=== PATIENT | female | born 1995 | race Caucasian/White ===

== ENCOUNTER 2023-04-27 09:44 | Outpatient (OUT) | payer OTHER, MEDICAID, SELFPAY ==
[2023-04-27 11:23] LABS: Basophils Absolute Auto 0.1 10^3/uL (0.0-0.1); Basophils Percent Auto 0.5 % (0.2-2.0); Eosinophils Absolute Auto 0.1 10^3/uL (0.0-0.7); Eosinophils Percent Auto 0.9 % (0.9-7.0); Hematocrit 29.1 % (36.0-48.0); Hemoglobin 9.6 g/dL (12.0-16.0); Immature Granulocytes Abs Auto 0.45 10^3/uL (0.00-0.03); Immature Granulocytes Pct Auto 3.9 % (0.0-0.5); Lymphocytes Absolute Auto 1.5 10^3/uL (1.2-3.8); Lymphocytes Percent Auto 13.2 % (20.5-60.0); Mean Corpuscular Hemoglobin 28.1 pg (26.7-34.0); Mean Corpuscular Volume 85.1 fL (81.0-99.0); Mean Platelet Volume 10.3 fL (9.5-13.5); Monocytes Absolute Auto 0.7 10^3/uL (0.3-0.8); Monocytes Percent Auto 6.1 % (1.7-12.0); Neutrophils Absolute Auto 8.6 10^3/uL (1.4-6.5); Neutrophils Percent Auto 75.4 % (43.0-75.0); Platelet Count 239 10^3/uL (150-450); Red Blood Count 3.42 10^6/uL (4.20-5.40); Red Cell Distribution Width 13.3 % (11.0-15.0); White Blood Count 11.4 10^3/uL (4.0-11.0)
[2023-04-27 11:28] LABS: Glucose 1 Hour 142 mg/dL
== END 2023-04-27 09:45 ==
LOC: LAB 09:45
PROVIDERS: PCP Obstetrics & Gynecology; Visit Provider Obstetrics & Gynecology
DX: Z34.92 Encounter for supervision of normal pregnancy, unspecified, second trimester (principal)
CPT/HCPCS: 36415; 82950; 85025

== ENCOUNTER 2023-05-07 19:05 | Outpatient (OUT) | payer OTHER, MEDICAID, SELFPAY ==
--- NOTE | 2023-05-07 19:08 | US_ITS ---
[address] [address] Patient Name: BEAN HOPPER MRN: [id number] date: 1995 Sex: F Assigned Patient Location: Current Patient Location: [place] Accession/Order Number: [id number] Exam Date: 05/07/2023 19:07 Report Date: 05/08/2023 05:06 At the request of: YOSSI BECKER Procedure: US OB growth EXAMINATION: US OB growth HISTORY: FIBROMYALGIA M79.7 COMPARISON: No relevant comparison available. FINDINGS: position: Cephalic presentation, longitudinal lie Amniotic fluid: 8.3 cm, lower limits of normal. The 5th percentile 8.29 cm Largest fluid pocket: 3.7 cm Heart rate: 141 bpm BPD: 7.68 cm, 30 weeks 6 days, 76% Head circumference: 20.44 cm, 31 weeks 2 days, 65% Abdominal circumference: 24.8 cm, 29 weeks 0 days, 29% Femur length: 5.6 cm, 29 weeks 4 days, 35% Estimated weight: 3 lbs. 2 oz., 36% Clinical age: 29 weeks 4 days Clinical JOSELYN: 07/19/2023 Ultrasound age: 30 weeks 1 day Ultrasound JOSELYN: 07/15/2023 IMPRESSION: Amniotic fluid volume just above the 5th 8.29 cm Otherwise normal interval growth Electronically authenticated by: ZHAO BLUNT Date: 05/08/2023 05:06
== END 2023-05-07 19:06 ==
PROVIDERS: PCP Obstetrics & Gynecology; Visit Provider Obstetrics & Gynecology
DX: O99.892 Other specified diseases and conditions complicating childbirth (principal); M79.7 Fibromyalgia
CPT/HCPCS: 76816

== ENCOUNTER 2023-05-09 08:22 | Outpatient (OUT) | payer OTHER, MEDICAID, SELFPAY ==
[2023-05-09 10:19] LABS: Glucose 1 Hour 140 mg/dL
== END 2023-05-09 08:23 ==
LOC: LAB 08:22
PROVIDERS: PCP Obstetrics & Gynecology; Visit Provider Obstetrics & Gynecology
DX: R73.09 Other abnormal glucose (principal)
CPT/HCPCS: 36415; 82950

== ENCOUNTER 2023-05-14 08:54 | Outpatient (OUT) | payer OTHER, MEDICAID, SELFPAY ==
[2023-05-14 09:16] LABS: Glucose Fasting 97 mg/dL (74-106)
[2023-05-14 12:18] LABS: Glucose 2 Hour 110 mg/dL
[2023-05-14 12:19] LABS: Glucose 1 Hour 147 mg/dL
[2023-05-14 14:04] LABS: Glucose 3 Hour 104 mg/dL
== END 2023-05-14 08:55 | disposition home or self-care (01) ==
PROVIDERS: PCP Obstetrics & Gynecology; Visit Provider Obstetrics & Gynecology
DX: E74.39 Other disorders of intestinal carbohydrate absorption (principal)
CPT/HCPCS: 36415; 82951; 82952

== ENCOUNTER 2023-05-20 12:21 | Outpatient (OUT) | payer OTHER, MEDICAID, SELFPAY ==
[2023-05-20] VITALS (7 sets, daily range): BP systolic 98–143; BP diastolic 62–73; PULSE 92–96; RESP 16–18; TEMP 36.5–37.4
--- NOTE | 2023-05-20 13:38 | US_ITS ---
[address] [address] Patient Name: BEAN HOPPER MRN: [id number] date: 1995 Sex: F Assigned Patient Location: [facility] Current Patient Location: [facility] Accession/Order Number: [id number] Exam Date: 05/20/2023 13:50 Report Date: 05/20/2023 15:13 At the request of: YOSSI BECKER Procedure: US OB placenta EXAMINATION: US OB placenta, US OB cervical length HISTORY: spotting COMPARISON: Ultrasound OB growth 05/07/2023 FINDINGS: PLACENTA: Located anteriorly. During the placenta and the uterine wall is a 3.0 x 2.1 x 1.2 cm isoechoic oval structure with internal vascularity, nonspecific but suggestive of a submucosal leiomyoma, possible venous maza. CERVIX LENGTH: 4.0 cm; closed. HEART RATE: 148 bpm PRESENTATION: Cephalic OTHER: None. IMPRESSION: 1. Single live intrauterine . 2. New nonspecific 3.0 cm isoechoic area between the placenta and endometrium which appears well encapsulated and demonstrates a small amount of internal blood flow; nonspecific. Consideration is given to venous maza and subchorionic hematoma. Follow-up is recommended.. Electronically authenticated by: NELLA BOYD Date: 05/20/2023 15:13
--- NOTE | 2023-05-20 13:44 | PC.NURSE ---
Dr. Aviles called with update re: pt. Orders received and confirmed.
[2023-05-20 14:32] LABS: Bilirubin Urine NEGATIVE (NEGATIVE); Blood Urine MODERATE (NEGATIVE); Clarity Urine CLEAR (CLEAR); Color Urine LT. YELLOW (YELLOW); Glucose Urine UA NEGATIVE (NEGATIVE); Ketones Urine NEGATIVE (NEGATIVE); Leukocyte Esterase Urine MODERATE (NEGATIVE); Nitrite Urine NEGATIVE (NEGATIVE); Protein Urine NEGATIVE (NEG/TRACE); Specific Gravity Urine 1.015 (1.005-1.025)
[2023-05-20 14:33] LABS: Urine Microscopic Indicated YES
[2023-05-20 14:45] LABS: Amorphous Sediment Urine FEW; Bacteria Urine TRACE #/HPF (NONE SEEN); Cast Seen? SEEN #/LPF (NONE SEEN); Crystals Seen? Seen #/HPF (None Seen); Hyaline Casts Urine RARE; Mucus Urine TRACE (NONE SEEN); Squamous Epithelial Cell Urine MODERATE #/LPF (NONE/RARE)
[2023-05-20 14:46] LABS: Urine Culture Indicated YES
--- NOTE | 2023-05-20 15:36 | PC.NURSE ---
Dr. Aviles called at this time to be told of Radiologist report of US of placenta. No answer, will try again in 10 minutes.
--- NOTE | 2023-05-20 18:05 | PC.NURSE ---
Pt. denies any needs at this time. States last time she went to the [facility] she didn't have any bleeding. Denies any pain. Ate grilled cheese for dinner. Continuous TOCO remains. Fresh ice water given.
--- NOTE | 2023-05-20 19:39 | W.PC.ACHO ---
Registration Status: REG OUT Primary Language: Preferred Language: Diet Category Date Time Status Regular Consistency Diet Diet 05/21/23 Breakfast Active
[2023-05-21 04:32] VITALS: BP 111/58; PULSE 75; RESP 16; TEMP 36.9
[2023-05-21 04:36] VITALS: BP 111/58; PULSE 75
--- NOTE | 2023-05-21 07:42 | W.PC.ACHO ---
Registration Status: REG OUT Primary Language: Preferred Language: Diet Category Date Time Status Regular Consistency Diet Diet 05/21/23 Breakfast Active Neurology Franklin coma scale total score 15 Daisy coma scale total score 15 Franklin coma scale total score 15 Respiratory Lung sounds [Bilateral clear Throughout] Lung sounds [Bilateral clear Throughout] Lung sounds [Bilateral clear Throughout] Oxygen Delivery Method Room Air Oxygen Delivery Method Room Air Oxygen Delivery Method Room Air
[2023-05-21 08:26] VITALS: TEMP 35.9
[2023-05-21 08:27] VITALS: BP 112/57; PULSE 76
--- NOTE | 2023-05-21 09:30 | US_ITS ---
[address] [address] Patient Name: BEAN HOPPER MRN: [id number] date: 1995 Sex: F Assigned Patient Location: [facility] Current Patient Location: [facility] Accession/Order Number: [id number] Exam Date: 05/21/2023 09:30 Report Date: 05/21/2023 11:11 At the request of: YOSSI BECKER Procedure: US OB placenta EXAMINATION: US OB placenta, US OB BPP w non-stress HISTORY: spotting COMPARISON: Ultrasound placenta 05/20/2023 FINDINGS: PLACENTA: Anterior. Again seen is a 2.9 x 2.5 x 1.3 cm oval well encapsulated structure between the placenta and uterine wall with mild internal blood flow. BREATHING MOVEMENTS: 2.0 GROSS BODY MOVEMENTS: 2.0 TONE: 2.0 QUALITATIVE AMNIOTIC FLUID VOLUME: 2.0 PRESENTATION: CEPHALIC HEART RATE: 143.6 bpm bpm. AMNIOTIC FLUID VOLUME: 12.6 cm GESTATIONAL AGE: 31 weeks 4 days CONCLUSION: 1. Total biophysical profile score 8.0. 2. Persistent 2.9 cm oval mass versus encapsulated fluid collection between placenta and uterine wall, nonspecific, consideration is given to a leiomyoma, placental tumor (chorioangioma, teratoma), and small hematoma. Hematoma is felt less likely given the lack of any change. Electronically authenticated by: NELLA BOYD Date: 05/21/2023 11:11
--- NOTE | 2023-05-21 09:30 | US_ITS ---
[address] [address] Patient Name: BEAN HOPPER MRN: [id number] date: 1995 Sex: F Assigned Patient Location: [facility] Current Patient Location: [facility] Accession/Order Number: [id number] Exam Date: 05/21/2023 09:30 Report Date: 05/21/2023 11:11 At the request of: YOSSI BECKER Procedure: US OB BPP w non-stress EXAMINATION: US OB placenta, US OB BPP w non-stress HISTORY: spotting COMPARISON: Ultrasound placenta 05/20/2023 FINDINGS: PLACENTA: Anterior. Again seen is a 2.9 x 2.5 x 1.3 cm oval well encapsulated structure between the placenta and uterine wall with mild internal blood flow. BREATHING MOVEMENTS: 2.0 GROSS BODY MOVEMENTS: 2.0 TONE: 2.0 QUALITATIVE AMNIOTIC FLUID VOLUME: 2.0 PRESENTATION: CEPHALIC HEART RATE: 143.6 bpm bpm. AMNIOTIC FLUID VOLUME: 12.6 cm GESTATIONAL AGE: 31 weeks 4 days CONCLUSION: 1. Total biophysical profile score 8.0. 2. Persistent 2.9 cm oval mass versus encapsulated fluid collection between placenta and uterine wall, nonspecific, consideration is given to a leiomyoma, placental tumor (chorioangioma, teratoma), and small hematoma. Hematoma is felt less likely given the lack of any change. Electronically authenticated by: NELLA BOYD Date: 05/21/2023 11:11
--- NOTE | 2023-05-21 10:17 | PC.NURSE ---
1010- Dr. Aviles called and updated on US. BPP 06/25, OFELIA 12.6 and spot behind placenta (venous maza vs. subchorionic hematoma) has not changed.
== END 2023-05-21 10:45 | disposition home or self-care (01) ==
LOC: FBCO 12:25 → FBC 12:27
PROVIDERS: PCP Obstetrics & Gynecology; Visit Provider Obstetrics & Gynecology
DX: O46.93 Antepartum hemorrhage, unspecified, third trimester (principal); Z3A.31 31 weeks gestation of pregnancy
CPT/HCPCS: 59025; 76815; 76817; 76818; 81003; 81015; 87086

== ENCOUNTER 2023-05-24 12:54 | Outpatient (OUT) | payer OTHER, MEDICAID, SELFPAY ==
--- NOTE | 2023-05-24 13:05 | US_ITS ---
[address] [address] Patient Name: BEAN HOPPER MRN: [id number] date: 1995 Sex: F Assigned Patient Location: [facility] Current Patient Location: Accession/Order Number: [id number] Exam Date: 05/24/2023 13:06 Report Date: 05/24/2023 16:34 At the request of: YOSSI BECKER Procedure: US OB BPP w non-stress EXAMINATION: US OB BPP w non-stress HISTORY: PLACENTAL ABNORMALITY COMPARISON: No relevant comparison available. TECHNIQUE: Ultrasound biophysical profile was performed in the radiology department. non-reactive stress testing was performed by nursing staff in the birthing center. FINDINGS: BREATHING MOVEMENTS: 2.0 GROSS BODY MOVEMENTS: 2.0 TONE: 2.0 QUALITATIVE AMNIOTIC FLUID VOLUME: 2.0 PRESENTATION: CEPHALIC HEART RATE: 148.4 bpm H.B./min AMNIOTIC FLUID VOLUME: 13.6 cm cm GESTATIONAL AGE: 32 weeks 0 days Previously identified area of oval abnormality between the placenta and myometrium remains stable measuring 2.9 x 1.3 x 3.1 cm CONCLUSION: Total biophysical profile score: 8.0 Electronically authenticated by: ZHAO BLUNT Date: 05/24/2023 16:34
== END 2023-05-24 13:55 | disposition home or self-care (01) ==
LOC: US 12:55 → FBC 12:57
PROVIDERS: PCP Obstetrics & Gynecology; Visit Provider Obstetrics & Gynecology
DX: O26.893 Other specified pregnancy related conditions, third trimester (principal); Z3A.32 32 weeks gestation of pregnancy
CPT/HCPCS: 76818

== ENCOUNTER 2023-05-27 20:23 | Outpatient (REF) | payer OTHER, MEDICAID, SELFPAY | END 2023-05-27 20:24 | disposition home or self-care (01) | LOC: LAB 20:23 | PROVIDERS: PCP Obstetrics & Gynecology; Visit Provider Obstetrics & Gynecology | DX: O36.8930 Maternal care for other specified fetal problems, third trimester, not applicable or unspecified (principal); O99.891 Other specified diseases and conditions complicating pregnancy; R31.9 Hematuria, unspecified; O41.8X30 Other specified disorders of amniotic fluid and membranes, third trimester, not applicable or unspecified; Z3A.00 Weeks of gestation of pregnancy not specified | CPT/HCPCS: 87086; 87150; 87186 ==

== ENCOUNTER 2023-05-28 08:55 | Outpatient (RCR) | payer OTHER, MEDICAID, SELFPAY ==
[2023-05-28 09:05] VITALS: BP 122/59; PULSE 82
== END 2023-05-28 09:30 | disposition home or self-care (01) ==
LOC: FBCO 08:55
PROVIDERS: PCP Obstetrics & Gynecology; Visit Provider Obstetrics & Gynecology
DX: O46.90 Antepartum hemorrhage, unspecified, unspecified trimester (principal); Z3A.00 Weeks of gestation of pregnancy not specified
CPT/HCPCS: 59025

== ENCOUNTER 2023-05-31 13:00 | Outpatient (OUT) | payer OTHER, MEDICAID, SELFPAY ==
--- NOTE | 2023-05-31 13:00 | US_ITS ---
[address] [address] Patient Name: BEAN HOPPER MRN: [id number] date: 1995 Sex: F Assigned Patient Location: US Current Patient Location: US Accession/Order Number: [id number] Exam Date: 05/31/2023 13:01 Report Date: 06/01/2023 00:00 At the request of: YOSSI BECKER Procedure: US OB BPP w non-stress EXAMINATION: US OB BPP w non-stress HISTORY: PLACENTA ABNORMALITY COMPARISON: Ultrasound biophysical 05/24/2023 TECHNIQUE: Ultrasound biophysical profile was performed in the radiology department. BREATHING MOVEMENTS: 2.0 GROSS BODY MOVEMENTS: 2.0 TONE: 2.0 QUALITATIVE AMNIOTIC FLUID VOLUME: 2.0 PRESENTATION: CEPHALIC HEART RATE: 150.0 bpm bpm. AMNIOTIC FLUID VOLUME: 10.1 cm GESTATIONAL AGE: 33 weeks 0 days CONCLUSION: Total biophysical profile score 8.0. Electronically authenticated by: NELLA BOYD Date: 06/01/2023 00:00
[2023-05-31 13:23] VITALS: BP 122/56; PULSE 91
== END 2023-05-31 14:01 | disposition home or self-care (01) ==
LOC: US 13:00 → FBC 13:06
PROVIDERS: PCP Obstetrics & Gynecology; Visit Provider Obstetrics & Gynecology
DX: O99.013 Anemia complicating pregnancy, third trimester (principal); O43.93 Unspecified placental disorder, third trimester; Z3A.00 Weeks of gestation of pregnancy not specified
CPT/HCPCS: 36415; 76818; 85007; 85025

== ENCOUNTER 2023-05-31 14:01 | Outpatient (OUT) | payer OTHER, MEDICAID, SELFPAY ==
[2023-05-31 14:23] LABS: Hematocrit 30.7 % (36.0-48.0); Hemoglobin 10.3 g/dL (12.0-16.0); Mean Corpuscular HGB Conc 33.6 g/dL (29.9-35.2); Mean Corpuscular Hemoglobin 28.1 pg (26.7-34.0); Mean Corpuscular Volume 83.7 fL (81.0-99.0); Mean Platelet Volume 9.7 fL (9.5-13.5); Platelet Count 233 10^3/uL (150-450); Red Blood Count 3.67 10^6/uL (4.20-5.40); Red Cell Distribution Width 13.3 % (11.0-15.0); White Blood Count 12.8 10^3/uL (4.0-11.0)
[2023-05-31 15:17] LABS: Band Neutrophils Absolute 0.1 10^3/uL (0.0-0.3); Segmented Neut Absolute Manual 10.36 10^3/uL (1.4-6.5)
[2023-05-31 15:18] LABS: Eosinophils Absolute Manual 0.12 10^3/uL (0.00-0.70); Lymphocytes Absolute Manual 1.66 10^3/uL (1.20-3.80); Monocytes Absolute Manual 0.51 10^3/uL (0.30-0.80)
== END 2023-05-31 14:02 | disposition home or self-care (01) ==
LOC: LAB 14:03
PROVIDERS: PCP Obstetrics & Gynecology; Visit Provider Obstetrics & Gynecology
DX: O99.013 Anemia complicating pregnancy, third trimester (principal); Z3A.00 Weeks of gestation of pregnancy not specified
CPT/HCPCS: 36415; 85007; 85025

== ENCOUNTER 2023-06-04 08:59 | Outpatient (OUT) | payer OTHER, MEDICAID, SELFPAY ==
[2023-06-04 09:08] VITALS: BP 131/75; PULSE 97
== END 2023-06-04 09:38 | disposition home or self-care (01) ==
LOC: FBCO 08:59 → FBC 09:01
PROVIDERS: Visit Provider Midwife
DX: O26.899 Other specified pregnancy related conditions, unspecified trimester (principal)
CPT/HCPCS: 59025

== ENCOUNTER 2023-06-07 13:36 | Outpatient (OUT) | payer OTHER, MEDICAID, SELFPAY ==
--- NOTE | 2023-06-07 13:02 | US_ITS ---
[address] [address] Patient Name: BEAN HOPPER MRN: [id number] date: 1995 Sex: F Assigned Patient Location: US Current Patient Location: Accession/Order Number: [id number] Exam Date: 06/07/2023 13:03 Report Date: 06/07/2023 18:07 At the request of: YOSSI BECKER Procedure: US OB BPP w non-stress EXAMINATION: US OB BPP w non-stress HISTORY: ABNORMAL PLACENTA COMPARISON: No relevant comparison available. TECHNIQUE: Ultrasound biophysical profile was performed in the radiology department. non-reactive stress testing was performed by nursing staff in the birthing center. FINDINGS: BREATHING MOVEMENTS: 2.0 GROSS BODY MOVEMENTS: 2.0 TONE: 2.0 QUALITATIVE AMNIOTIC FLUID VOLUME: 2.0 PRESENTATION: CEPHALIC HEART RATE: 160.7 bpm H.B./min AMNIOTIC FLUID VOLUME: 9.1 cm cm GESTATIONAL AGE: 34 weeks 0 days CONCLUSION: Total biophysical profile score: 8.0 Electronically authenticated by: ZHAO BLUNT Date: 06/07/2023 18:07
== END 2023-06-07 14:15 | disposition home or self-care (01) ==
LOC: US 13:36 → FBC 13:39
PROVIDERS: Visit Provider Obstetrics & Gynecology
DX: O43.93 Unspecified placental disorder, third trimester (principal); Z3A.34 34 weeks gestation of pregnancy
CPT/HCPCS: 76818

== ENCOUNTER 2023-06-11 09:37 | Outpatient (OUT) | payer OTHER, MEDICAID, SELFPAY ==
[2023-06-11 09:42] VITALS: BP 113/65; PULSE 101
== END 2023-06-11 10:07 | disposition home or self-care (01) ==
LOC: FBCO 09:38 → FBC 09:39
PROVIDERS: Visit Provider Obstetrics & Gynecology
DX: O26.90 Pregnancy related conditions, unspecified, unspecified trimester (principal); Z3A.00 Weeks of gestation of pregnancy not specified
CPT/HCPCS: 59025

== ENCOUNTER 2023-06-14 12:55 | Outpatient (OUT) | payer OTHER, MEDICAID, SELFPAY ==
[2023-06-14 13:03] VITALS: BP 128/74; PULSE 92
--- NOTE | 2023-06-14 13:11 | US_ITS ---
[address] [address] Patient Name: BEAN HOPEPR MRN: [id number] date: 1995 Sex: F Assigned Patient Location: [facility] Current Patient Location: Accession/Order Number: [id number] Exam Date: 06/14/2023 13:15 Report Date: 06/14/2023 15:47 At the request of: ANEL SHERWOOD Procedure: US OB BPP w non-stress EXAMINATION: US OB BPP w non-stress HISTORY: PLACENTAL ABNORMALITY COMPARISON: Ultrasound biophysical 06/07/2023 TECHNIQUE: Ultrasound biophysical profile was performed in the radiology department. BREATHING MOVEMENTS: 2.0 GROSS BODY MOVEMENTS: 2.0 TONE: 2.0 QUALITATIVE AMNIOTIC FLUID VOLUME: 2.0 PRESENTATION: CEPHALIC HEART RATE: 149.2 bpm bpm. AMNIOTIC FLUID VOLUME: 9.3 cm GESTATIONAL AGE: 35 weeks 0 days CONCLUSION: 1. Total biophysical profile score 8.0. 2. Nonspecific 2.2 cm isoechoic/slightly hypoechoic area at placental-endometrial margin of questionable clinical significance. Consider follow-up. 3. Small venous maza incidentally noted within the placenta. Electronically authenticated by: NELLA BOYD Date: 06/14/2023 15:47
== END 2023-06-14 14:00 | disposition home or self-care (01) ==
LOC: US 12:56 → FBC 12:57
PROVIDERS: Visit Provider Obstetrics & Gynecology
DX: O43.90 Unspecified placental disorder, unspecified trimester (principal); Z3A.00 Weeks of gestation of pregnancy not specified
CPT/HCPCS: 59025; 76818

== ENCOUNTER 2023-06-18 09:00 | Outpatient (OUT) | payer OTHER, MEDICAID, SELFPAY ==
[2023-06-18 09:16] VITALS: BP 124/69; PULSE 99
== END 2023-06-18 10:13 ==
LOC: FBCO 09:07 → FBC 09:09
PROVIDERS: Visit Provider Midwife
DX: O43.90 Unspecified placental disorder, unspecified trimester (principal)
CPT/HCPCS: 59025

== ENCOUNTER 2023-06-21 13:02 | Outpatient (OUT) | payer OTHER, MEDICAID, SELFPAY ==
--- NOTE | 2023-06-21 13:05 | US_ITS ---
[address] [address] Patient Name: BEAN HOPPER MRN: [id number] date: 1995 Sex: F Assigned Patient Location: [facility] Current Patient Location: [facility] Accession/Order Number: [id number] Exam Date: 06/21/2023 13:10 Report Date: 06/21/2023 14:11 At the request of: YOSSI BECKER Procedure: US OB BPP w non-stress EXAMINATION: US OB BPP w non-stress HISTORY: Placental abnormalities COMPARISON: No relevant comparison available. TECHNIQUE: Ultrasound biophysical profile was performed in the radiology department. FINDINGS: BREATHING MOVEMENTS: 2.0 GROSS BODY MOVEMENTS: 2.0 TONE: 2.0 QUALITATIVE AMNIOTIC FLUID VOLUME: 2.0 PRESENTATION: CEPHALIC HEART RATE: 147.5 bpm H.B./min AMNIOTIC FLUID VOLUME: 13.2 cm cm GESTATIONAL AGE: 36 weeks 0 days Again demonstrated and myometrial placental junction is an area of soft tissue echogenicity slightly hypoechoic to the placenta measuring 2.4 x 2.3 x 1.4 cm. This lesion demonstrates peripheral color flow CONCLUSION: Total biophysical profile score: 8.0 Slight interval increase in size of a nonspecific 2.4 cm hypoechogenic peripherally vascular lesion at the myometrial placental junction. Nonspecific. Consider a placenta accreta spectrum disorder Electronically authenticated by: ZHAO BLUNT Date: 06/21/2023 14:11
[2023-06-21 13:35] VITALS: BP 120/62; PULSE 92
== END 2023-06-21 14:00 | disposition home or self-care (01) ==
LOC: US 13:02 → FBC 13:03
PROVIDERS: Visit Provider Obstetrics & Gynecology
DX: O43.93 Unspecified placental disorder, third trimester (principal); Z3A.36 36 weeks gestation of pregnancy
CPT/HCPCS: 76818

== ENCOUNTER 2023-06-25 09:00 | Outpatient (OUT) | payer OTHER, MEDICAID, SELFPAY ==
[2023-06-25 09:16] VITALS: TEMP 36.3
[2023-06-25 09:17] VITALS: BP 114/61; PULSE 80
== END 2023-06-25 09:40 | disposition home or self-care (01) ==
LOC: FBCO 09:10 → FBC 09:11
PROVIDERS: Visit Provider Obstetrics & Gynecology
DX: O43.90 Unspecified placental disorder, unspecified trimester (principal); Z3A.00 Weeks of gestation of pregnancy not specified
CPT/HCPCS: 59025

== ENCOUNTER 2023-06-27 20:04 | Outpatient (REF) | payer OTHER, MEDICAID, SELFPAY | END 2023-06-27 20:05 | disposition home or self-care (01) | LOC: LAB 20:04 | PROVIDERS: Visit Provider Physician Assistant | DX: Z34.93 Encounter for supervision of normal pregnancy, unspecified, third trimester (principal) | CPT/HCPCS: 87081 ==

== ENCOUNTER 2023-06-28 13:00 | Outpatient (OUT) | payer OTHER, MEDICAID, SELFPAY ==
[2023-06-28 13:13] VITALS: BP 132/71; PULSE 82; TEMP 35.9
--- NOTE | 2023-06-28 13:16 | US_ITS ---
[address] [address] Patient Name: BEAN HOPPER MRN: [id number] date: 1995 Sex: F Assigned Patient Location: US Current Patient Location: US Accession/Order Number: [id number] Exam Date: 06/28/2023 13:25 Report Date: 06/28/2023 16:06 At the request of: ANEL SHERWOOD Procedure: US OB BPP w non-stress EXAMINATION: US OB BPP w non-stress HISTORY: PLACENTA ABNORMALITY COMPARISON: Ultrasound OB biophysical 06/21/2023 TECHNIQUE: Ultrasound biophysical profile was performed in the radiology department. BREATHING MOVEMENTS: 2.0 GROSS BODY MOVEMENTS: 2.0 TONE: 2.0 QUALITATIVE AMNIOTIC FLUID VOLUME: 2.0 PRESENTATION: CEPHALIC HEART RATE: 138.5 bpm bpm. AMNIOTIC FLUID VOLUME: 11.9 cm GESTATIONAL AGE: 37 weeks 0 days CONCLUSION: Total biophysical profile score 8.0. Electronically authenticated by: NELLA BOYD Date: 06/28/2023 16:06
== END 2023-06-28 13:55 | disposition home or self-care (01) ==
LOC: US 07-03 07:41 → FBC 07-03 07:41
PROVIDERS: Visit Provider Obstetrics & Gynecology
DX: O43.93 Unspecified placental disorder, third trimester (principal); Z3A.37 37 weeks gestation of pregnancy
CPT/HCPCS: 76818

== ENCOUNTER 2023-07-02 09:02 | Outpatient (OUT) | payer OTHER, MEDICAID, SELFPAY ==
[2023-07-02 09:14] VITALS: BP 135/70; PULSE 90
== END 2023-07-02 09:40 | disposition home or self-care (01) ==
LOC: FBCO 09:04 → FBC 09:09
PROVIDERS: Visit Provider Midwife
DX: O43.899 Other placental disorders, unspecified trimester (principal); Z3A.00 Weeks of gestation of pregnancy not specified
CPT/HCPCS: 59025

== ENCOUNTER 2023-07-05 13:02 | Outpatient (OUT) | payer OTHER, MEDICAID, SELFPAY ==
--- NOTE | 2023-07-05 13:05 | US_ITS ---
[address] [address] Patient Name: BEAN HOPPER MRN: [id number] date: 1995 Sex: F Assigned Patient Location: [facility] Current Patient Location: Accession/Order Number: [id number] Exam Date: 07/05/2023 13:15 Report Date: 07/08/2023 15:34 At the request of: YOSSI BECKER Procedure: US OB BPP w non-stress EXAMINATION: US OB BPP w non-stress HISTORY: PLACENTAL ABNORMALITIES COMPARISON: Ultrasound OB biophysical profile 06/28/2023 TECHNIQUE: Ultrasound biophysical profile was performed in the radiology department. BREATHING MOVEMENTS: 2.0 GROSS BODY MOVEMENTS: 2.0 TONE: 2.0 QUALITATIVE AMNIOTIC FLUID VOLUME: 2.0 PRESENTATION: CEPHALIC HEART RATE: 145.2 bpm bpm. AMNIOTIC FLUID VOLUME: 9.5 cm GESTATIONAL AGE: 38 weeks 0 days CONCLUSION: Total biophysical profile score 8.0. Electronically authenticated by: NELLA BOYD Date: 07/08/2023 15:34
[2023-07-05 13:47] VITALS: BP 121/71; PULSE 86
== END 2023-07-05 14:18 ==
LOC: US 13:02 → FBC 13:03
PROVIDERS: Visit Provider Obstetrics & Gynecology
DX: O43.93 Unspecified placental disorder, third trimester (principal); Z3A.38 38 weeks gestation of pregnancy
CPT/HCPCS: 59025; 76818

== ENCOUNTER 2023-07-09 09:11 | Outpatient (RCR) | payer OTHER, MEDICAID, SELFPAY ==
[2023-07-09 09:21] VITALS: BP 117/69; PULSE 94
== END 2023-07-09 09:40 | disposition home or self-care (01) ==
LOC: FBCO 09:11
PROVIDERS: Visit Provider Obstetrics & Gynecology
DX: O43.90 Unspecified placental disorder, unspecified trimester (principal); Z3A.00 Weeks of gestation of pregnancy not specified
CPT/HCPCS: 59025

== ENCOUNTER 2023-07-12 13:00 | Outpatient (OUT) | payer OTHER, MEDICAID, SELFPAY ==
--- NOTE | 2023-07-12 13:09 | US_ITS ---
[address] [address] Patient Name: BEAN HOPPER MRN: [id number] date: 1995 Sex: F Assigned Patient Location: [facility] Current Patient Location: Accession/Order Number: [id number] Exam Date: 07/12/2023 13:10 Report Date: 07/13/2023 17:37 At the request of: YOSSI BECKER Procedure: US OB BPP w non-stress EXAMINATION: US OB BPP w non-stress HISTORY: Placental abnormalities COMPARISON: No relevant comparison available. TECHNIQUE: Ultrasound biophysical profile was performed in the radiology department. FINDINGS: BREATHING MOVEMENTS: 2.0 GROSS BODY MOVEMENTS: 2.0 TONE: 2.0 QUALITATIVE AMNIOTIC FLUID VOLUME: 2.0 PRESENTATION: CEPHALIC HEART RATE: 158.8 bpm H.B./min AMNIOTIC FLUID VOLUME: 10.7 cm cm GESTATIONAL AGE: 39 weeks 0 days CONCLUSION: Total biophysical profile score: 8.0 Electronically authenticated by: ZHAO BLUNT Date: 07/13/2023 17:37
[2023-07-12 13:32] VITALS: BP 108/64; PULSE 85
== END 2023-07-12 13:45 | disposition home or self-care (01) ==
LOC: FBC 07-14 07:40 → FBCO 07-14 07:40
PROVIDERS: Visit Provider Obstetrics & Gynecology
DX: O43.93 Unspecified placental disorder, third trimester (principal); Z3A.39 39 weeks gestation of pregnancy
CPT/HCPCS: 59025; 76818

== ENCOUNTER 2023-07-14 12:45 | Inpatient (IN) | payer OTHER, MEDICAID, SELFPAY ==
[2023-07-14] VITALS (47 sets, daily range): BP systolic 119–172; BP diastolic 60–92; PULSE 75–117; RESP 16–18; TEMP 36.5–37.7
[2023-07-14 13:53] LABS: Amnisure POSITIVE (NEGATIVE)
[2023-07-14 13:55] LABS: Bilirubin Urine NEGATIVE (NEGATIVE); Blood Urine TRACE-I (NEGATIVE); Clarity Urine CLEAR (CLEAR); Color Urine LT. YELLOW (YELLOW); Glucose Urine UA NEGATIVE (NEGATIVE); Ketones Urine NEGATIVE (NEGATIVE); Leukocyte Esterase Urine NEGATIVE (NEGATIVE); Nitrite Urine NEGATIVE (NEGATIVE); Protein Urine 30 mg/dL (NEG/TRACE); Urine Microscopic Indicated YES; Urobilinogen Urine 0.2 EU/dL (0.2-1.0); pH Urine 6.5 (5.0-9.0)
[2023-07-14 14:00] LABS: Bacteria Urine NONE SEEN #/HPF (NONE SEEN); Mucus Urine SMALL (NONE SEEN); RBC Urine 0-2 #/HPF (0-2); WBC Urine 0-2 #/HPF (NONE SEEN)
[2023-07-14 14:01] LABS: Cast Seen? NONE SEEN #/LPF (NONE SEEN); Crystals Seen? None Seen #/HPF (None Seen); Squamous Epithelial Cell Urine MODERATE #/LPF (NONE/RARE); Urine Culture Indicated NO
[2023-07-14 15:16] LABS: Hematocrit 33.8 % (36.0-48.0); Hemoglobin 11.1 g/dL (12.0-16.0); Mean Corpuscular HGB Conc 32.8 g/dL (29.9-35.2); Mean Corpuscular Hemoglobin 27.4 pg (26.7-34.0); Mean Corpuscular Volume 83.5 fL (81.0-99.0); Mean Platelet Volume 10.9 fL (9.5-13.5); Platelet Count 247 10^3/uL (150-450); Red Blood Count 4.05 10^6/uL (4.20-5.40); Red Cell Distribution Width 14.4 % (11.0-15.0); White Blood Count 14.2 10^3/uL (4.0-11.0)
[2023-07-14 15:29] LABS: Amphetamine Screen Urine NEGATIVE (NEGATIVE); Benzodiazepines Screen Urine NEGATIVE (NEGATIVE); Cannabinoid Screen Urine NEGATIVE (NEGATIVE); Cocaine Screen Urine NEGATIVE (NEGATIVE); Methamphetamines Screen Urine NEGATIVE (NEGATIVE); Opiate Screen Urine NEGATIVE (NEGATIVE); Phencyclidine Screen Urine NEGATIVE (NEGATIVE)
[2023-07-14 15:30] LABS: Barbiturates Screen Urine NEGATIVE (NEGATIVE); Buprenorphine Screen Urine NEGATIVE (NEGATIVE); Methadone Screen Urine NEGATIVE (NEGATIVE); Oxycodone Screen Urine NEGATIVE (NEGATIVE); Tricyclic Antidepressant Urine NEGATIVE (NEGATIVE)
[2023-07-14] MEDS: 0.9 % SODIUM CHLORIDE 1,000 ML 1000 ML IV (20:31)
[2023-07-14] MEDS: ROPIVACAINE HCL/PF 400 MG/200 ML PREMIX 9 MG EPIDURAL (21:23)
[2023-07-14] MEDS: FENTANYL CITRATE/PF 100 MCG/2 ML VIAL EPIDURAL ×2 (21:25→21:29)
[2023-07-15] VITALS (18 sets, daily range): BP systolic 120–146; BP diastolic 56–82; PULSE 94–118; RESP 14–18; TEMP 36.7–37.2
--- NOTE | 2023-07-15 00:04 | PM.OBPRCVD ---
Procedure Intrapartal events: None Induction method: none Delivery augmentation: pitocin Delivery monitor: external FHT and external uterine Route of delivery: Episiotomy Description: none Laceration description: perineal - 2nd degree Delivery repair: Vicryl Estimated blood loss (mL): 350 Anesthesia type: Epidural Disposition: floor Delivery date: 07/14/23 Gender: female presentation: vertex Placental delivery description: Spontaneous cord description: 3 Vessels
[2023-07-15] MEDS: IBUPROFEN 600 MG TABLET PO ×4 (01:52→23:29)
[2023-07-15] MEDS: BENZOCAINE/MENTHOL 85 GRAM SPRAY BOTTLE 1 APPLIC TOPICAL (01:52)
[2023-07-15] MEDS: GLYCERIN/WITCH HAZEL PADS 1 PAD TOPICAL (01:52)
[2023-07-15 06:17] LABS: Basophils Percent Auto 0.2 % (0.2-2.0); Eosinophils Percent Auto 0.2 % (0.9-7.0); Hematocrit 30.8 % (36.0-48.0); Hemoglobin 10.1 g/dL (12.0-16.0); Immature Granulocytes Abs Auto 0.18 10^3/uL (0.00-0.03); Lymphocytes Absolute Auto 1.3 10^3/uL (1.2-3.8); Lymphocytes Percent Auto 7.1 % (20.5-60.0); Mean Corpuscular HGB Conc 32.8 g/dL (29.9-35.2); Mean Corpuscular Hemoglobin 27.9 pg (26.7-34.0); Mean Corpuscular Volume 85.1 fL (81.0-99.0); Monocytes Absolute Auto 1.3 10^3/uL (0.3-0.8); Monocytes Percent Auto 7.3 % (1.7-12.0); Neutrophils Absolute Auto 14.9 10^3/uL (1.4-6.5); Neutrophils Percent Auto 84.2 % (43.0-75.0); Platelet Count 184 10^3/uL (150-450); Red Blood Count 3.62 10^6/uL (4.20-5.40); Red Cell Distribution Width 14.4 % (11.0-15.0); White Blood Count 17.7 10^3/uL (4.0-11.0)
--- NOTE | 2023-07-15 07:40 | P.OBPN_ITS ---
OB - PN: Subj Subjective Patient comments: no complaints [place] status: doing well Exam Constitutional Vital Signs, click to edit/add: Last Vital Signs Temp 99.3 F 07/14/23 23:24 Pulse 97 H 07/15/23 04:13 Resp 18 07/14/23 23:24 BP 127/72 07/15/23 04:13 O2 Del Method Room Air 07/15/23 04:15 Documenting provider has reviewed patient's vital signs: yes Common normals: no apparent distress Respiratory Common normals: normal respiratory effort and clear to auscultation bilaterally Cardio Common normals: regular rate and regular rhythm GI Common normals: Normal to inspection, nondistended, normoactive bowel sounds present Extremity Common normals: no clubbing, cyanosis or edema Results Labs Labs: Short CBC 07/14/23 07/15/23 Range/Units 15:00 05:54 WBC 14.2 H 17.7 H (4.0-11.0) 10^3/uL Hgb 11.1 L 10.1 L (12.0-16.0) g/dL Hct 33.8 L 30.8 L (36.0-48.0) % Plt Count 247 184 (150-450) 10^3/uL Urine 07/14/23 Range/Units 13:25 Urine Color Lt. yellow (YELLOW) Urine Clarity Clear (CLEAR) Urine pH 6.5 (5.0-9.0) Ur Specific [place] 1.020 (1.005-1.025) Urine Protein 30 A (NEG/TRACE) mg/dL Urine Glucose (UA) Negative (NEGATIVE) mg/dL OB - PN: A/P Plan - Vaginal Delivery day: 1 Plan: routine care Time Spent with Patient Time: Total time spent is greater than 50% in coordination of care (as documented) at patient's floor/unit and/or counseling patient: Total time spent with greater than 50% in coordination of care (as documented) at patient's floor/unit and/or counseling patient: less than 15 minutes
[2023-07-16] MEDS: ACETAMINOPHEN 325 MG TABLET 650 MG PO (05:49)
--- NOTE | 2023-07-16 07:17 | W.PC.ACHO ---
Registration Status: ADM IN Primary Language: Grenadian Preferred Language: Grenadian Active Medications Generic Name Dose Route Start Last Admin Trade Name Freq PRN Reason Stop Dose Admin Acetaminophen 650 mg 07/15/23 00:02 Acetaminophen 325 Mg Tablet PO Q6H PRN Mild Pain Al Hydroxide/Mg Hydroxide 2,400 mg 07/15/23 00:02 Magnesium Hydroxide 2,400 Mg/10 Ml Oral.Susp PO Q6H PRN Dyspepsia Benzocaine/Menthol 1 applic 07/15/23 00:02 07/15/23 01:52 Benzocaine/Menthol 85 Gram [place] Bottle TOPICAL 1 applic Q2H PRN Administration Pain Carboprost Tromethamine 250 mcg 07/14/23 14:10 Carboprost Tromethamine 250 Mcg/Ml 1 Ml Vial IM 07/16/23 00:01 Q15M PRN Bleeding Diphtheria/Pertussis/Tetanus Vacc 0.5 ml 07/17/23 09:00 Adacel Diph,Pertuss(Acell),Tet Vac/Pf 0.5 Ml Adult Syringe IM 07/17/23 09:01 .ONCE ONE Docusate Sodium 100 mg 07/16/23 09:00 Docusate Sodium 100 Mg Capsule PO BID [facility] Oxytocin/Sodium Chloride 20 units in 1,000 mls @ 125 mls/hr 07/15/23 14:12 Pitocin 20 Unit/1,000 Ml-Ns IV 07/15/23 22:11 ONCE ONE Protocol Oxytocin/Sodium Chloride 10 units in 500 mls @ 6 mls/hr 07/14/23 14:15 Pitocin 10 Unit/500 Ml-Ns IV Q24H [facility] Protocol 2 MILLIUNIT/MIN Ropivacaine/Sodium Chloride 400 mg in 200 mls @ 6 mls/hr 07/14/23 14:15 07/14/23 21:23 Naropin 0.2% 400 Mg/200 Ml Bag EPIDURAL 07/15/23 14:17 9 mls/hr Q24H [facility] 9 mls/hr Administration Sodium Chloride 1,000 mls @ 125 mls/hr 07/14/23 22:45 Sodium Chloride 0.9% 1,000 Ml IV .Q8H PRN Labor Induction Oxytocin 20 unit/ Sodium 1,002 mls @ 125 mls/hr 07/15/23 00:15 07/14/23 23:51 Chloride IV 07/15/23 08:14 125 mls/hr Q8H ARNULFO 125 mls/hr Administration Ibuprofen 600 mg 07/15/23 00:02 07/15/23 01:52 Ibuprofen 600 Mg Tablet PO 600 mg Q6H PRN Administration Moderate Pain Measles/Mumps/Rubella Vaccine Live 0.5 ml 07/17/23 09:00 Measles,Mumps,Rubella Vacc/Pf 0.5 Ml Vial SQ 07/17/23 09:01 .ONCE ONE Methylergonovine Maleate 0.2 mg 07/14/23 14:10 Methylergonovine Maleate 0.2 Mg/Ml Ampule IM 07/16/23 00:01 ONCE PRN Uterine Contractility/Contract Methylergonovine Maleate 0.2 mg 07/14/23 14:10 Methylergonovine Maleate 0.2 Mg Tablet PO 07/16/23 14:10 Q4H PRN Uterine Contractility/Contract Misoprostol 600 mcg 07/14/23 14:10 Misoprostol 100 Mcg Tablet PO 07/16/23 14:10 ONCE PRN Uterine Bleeding Misoprostol 800 mcg 07/14/23 14:10 Misoprostol 100 Mcg Tablet SL 07/16/23 14:10 ONCE PRN Uterine Bleeding Misoprostol 1,000 mcg 07/14/23 14:10 Misoprostol 100 Mcg Tablet HI 07/16/23 14:10 ONCE PRN Uterine Bleeding Naloxone HCl 0.4 mg 07/14/23 14:15 Naloxone Hcl 0.4 Mg/Ml Vial IV 07/15/23 14:17 ONCE PRN RESPIRATORY DEPRESSION Ondansetron HCl 4 mg 07/14/23 14:10 Ondansetron Pf 4 Mg/2 Ml Vial IV Q6H PRN Nausea And Vomiting Ondansetron HCl 4 mg 07/14/23 14:10 Ondansetron 4 Mg Rapdis Tablet SL Q6H PRN Nausea And Vomiting Senna 17.2 mg 07/15/23 20:00 Sennosides 8.6 Mg Tablet PO QHS PRN Constipation Simethicone 80 mg 07/15/23 00:02 Simethicone 80 Mg Tab.Chew PO QID PRN Abdominal Distention Temazepam 15 mg 07/15/23 00:02 Temazepam 15 Mg Capsule PO QHS PRN Sleep Witch Freida/Glycerin 1 pad 07/15/23 00:02 07/15/23 01:52 Glycerin/Witch [place] Pads TOPICAL 1 pad Q2H PRN Administration Pain Diet Category Date Time Status Regular Consistency Diet Diet 07/14/23 Dinner Active Regular Consistency Diet Diet 07/15/23 Breakfast Active IV Insertion/Site Date of IV Line Insertion [20g 07/14/23 left Antecubital] Date of IV Line Insertion [18g 07/14/23 left Antecubital] IV Insertion Time [20g left 14:20 Antecubital] IV Insertion Time [18g left 14:30 Antecubital] Neurology Patient orientation (short person,place,time,situation list) Respiratory Lung sounds [Bilateral clear Throughout] Oxygen Delivery Method Room Air Oxygen Delivery Method Room Air
--- NOTE | 2023-07-16 07:18 | W.PC.ACHO ---
Registration Status: ADM IN Primary Language: [place] Preferred Language: [place] Active Medications 0715- Report given to Dorian Dia RN Generic Name Dose Route Start Last Admin Trade Name Son PRN Reason Stop Dose Admin Acetaminophen 650 mg 07/15/23 00:02 07/16/23 05:49 Acetaminophen 325 Mg Tablet PO 650 mg Q6H PRN Administration Mild Pain Al Hydroxide/Mg Hydroxide 2,400 mg 07/15/23 00:02 Magnesium Hydroxide 2,400 Mg/10 Ml Oral.Susp PO Q6H PRN Dyspepsia Benzocaine/Menthol 1 applic 07/15/23 00:02 07/15/23 01:52 Benzocaine/Menthol 85 Gram [place] Bottle TOPICAL 1 applic Q2H PRN Administration Pain Diphtheria/Pertussis/Tetanus Vacc 0.5 ml 07/17/23 09:00 Adacel Diph,Pertuss(Acell),Tet Vac/Pf 0.5 Ml Adult Syringe IM 07/17/23 09:01 .ONCE ONE Docusate Sodium 100 mg 07/16/23 09:00 Docusate Sodium 100 Mg Capsule PO BID ARNULFO Oxytocin/Sodium Chloride 10 units in 500 mls @ 6 mls/hr 07/14/23 14:15 Pitocin 10 Unit/500 Ml-Ns IV Q24H ARNULFO Protocol 2 MILLIUNIT/MIN Sodium Chloride 1,000 mls @ 125 mls/hr 07/14/23 22:45 Sodium Chloride 0.9% 1,000 Ml IV .Q8H PRN Labor Induction Ibuprofen 600 mg 07/15/23 00:02 07/15/23 23:29 Ibuprofen 600 Mg Tablet PO 600 mg Q6H PRN Administration Moderate Pain Measles/Mumps/Rubella Vaccine Live 0.5 ml 07/17/23 09:00 Measles,Mumps,Rubella Vacc/Pf 0.5 Ml Vial SQ 07/17/23 09:01 .ONCE ONE Methylergonovine Maleate 0.2 mg 07/14/23 14:10 Methylergonovine Maleate 0.2 Mg Tablet PO 07/16/23 14:10 Q4H PRN Uterine Contractility/Contract Misoprostol 600 mcg 07/14/23 14:10 Misoprostol 100 Mcg Tablet PO 07/16/23 14:10 ONCE PRN Uterine Bleeding Misoprostol 800 mcg 07/14/23 14:10 Misoprostol 100 Mcg Tablet SL 07/16/23 14:10 ONCE PRN Uterine Bleeding Misoprostol 1,000 mcg 07/14/23 14:10 Misoprostol 100 Mcg Tablet CO 07/16/23 14:10 ONCE PRN Uterine Bleeding Ondansetron HCl 4 mg 07/14/23 14:10 Ondansetron Pf 4 Mg/2 Ml Vial IV Q6H PRN Nausea And Vomiting Ondansetron HCl 4 mg 07/14/23 14:10 Ondansetron 4 Mg Rapdis Tablet SL Q6H PRN Nausea And Vomiting Senna 17.2 mg 07/15/23 20:00 Sennosides 8.6 Mg Tablet PO QHS PRN Constipation Simethicone 80 mg 07/15/23 00:02 Simethicone 80 Mg Tab.Chew PO QID PRN Abdominal Distention Temazepam 15 mg 07/15/23 00:02 Temazepam 15 Mg Capsule PO QHS PRN Sleep Witch [place]/Glycerin 1 pad 07/15/23 00:02 07/15/23 01:52 Glycerin/Witch [place] Pads TOPICAL 1 pad Q2H PRN Administration Pain Diet Category Date Time Status Regular Consistency Diet Diet 07/15/23 Breakfast Active IV Insertion/Site Date of IV Line Insertion [20g 07/14/23 left Antecubital] Date of IV Line Insertion [18g 07/14/23 left Antecubital] IV Insertion Time [20g left 14:20 Antecubital] IV Insertion Time [18g left 14:30 Antecubital] Respiratory Lung sounds [Bilateral clear Throughout] Lung sounds [Bilateral clear Throughout] Oxygen Delivery Method Room Air Oxygen Delivery Method Room Air Oxygen Delivery Method Room Air Oxygen Delivery Method Room Air Oxygen Delivery Method Room Air Oxygen Delivery Method Room Air Oxygen Delivery Method Room Air Cardiology Heart Sounds Strong,Regular Heart Sounds Strong,Regular Bowels Bowel Pattern No Bowel Movement Bowel Pattern No Bowel Movement Date of Last Bowel Movement [ 07/15/23 All Quadrants] Renal Bladder Pattern Continent Bladder Pattern Continent
[2023-07-16 09:19] VITALS: BP 157/90; PULSE 129
[2023-07-16] MEDS: IBUPROFEN 600 MG TABLET PO (09:19)
[2023-07-16 09:20] VITALS: RESP 16; TEMP 36.8
[2023-07-16 09:21] VITALS: BP 144/77; PULSE 117
--- NOTE | 2023-07-16 10:16 | PM.OBPN ---
OB - PN: Subj Subjective Patient comments: no complaints [place] status: doing well feeding status: exclusively Exam Constitutional Vital Signs, click to edit/add: Last Vital Signs Temp 98.2 F 07/16/23 09:20 Pulse 117 H 07/16/23 09:21 Resp 16 07/16/23 09:20 BP 144/77 H 07/16/23 09:21 O2 Del Method Room Air 07/15/23 23:30 Documenting provider has reviewed patient's vital signs: yes Common normals: no apparent distress, oriented x3, alert and well nourished General appearance: cooperative and comfortable Orientation/consciousness: Yes awake, Yes oriented to person, Yes oriented to place and Yes oriented to time HENMT Common normals: normocephalic Chest Common normals: inspection of chest normal Respiratory Common normals: normal respiratory effort, no retractions and clear to auscultation bilaterally Cardio Common normals: no JVD, regular rate, regular rhythm and no murmurs Rate: regular rate Rhythm: regular rhythm GI Common normals: Normal to inspection, nondistended, normoactive bowel sounds present, soft to palpation, non-tender and no masses Common normals: no CVA tenderness Back & Pelvis Common normals: no CVA tenderness and no thoracic nor lumbar tenderness Extremity Common normals: normal to inspection, full ROM and no calf tenderness Neuro Common normals: oriented x3 Sensorium/orientation: awake, alert, oriented to person, oriented to place and oriented to time Psych Common normals: mental status grossly normal Attitude: calm Activity/motor behavior: appropriate eye contact OB - PN: A/P Plan - Vaginal Delivery day: 2 Plan: routine care, discharge home and follow up 6 weeks Time Spent with Patient Time: Total time spent is greater than 50% in coordination of care (as documented) at patient's floor/unit and/or counseling patient: Total time spent with greater than 50% in coordination of care (as documented) at patient's floor/unit and/or counseling patient: less than 15 minutes
[2023-07-16 12:32] VITALS: BP 145/71; PULSE 107
== END 2023-07-16 13:20 | disposition home or self-care (01) | DRG 807 ==
PROVIDERS: Admitting Provider Obstetrics & Gynecology; Visit Provider Obstetrics & Gynecology
DX: O99.892 Other specified diseases and conditions complicating childbirth (principal); Z37.0 Single live birth; O70.1 Second degree perineal laceration during delivery; Z3A.39 39 weeks gestation of pregnancy; M79.7 Fibromyalgia; M41.9 Scoliosis, unspecified; Z86.19 Personal history of other infectious and parasitic diseases; Z86.39 Personal history of other endocrine, nutritional and metabolic disease; Z88.1 Allergy status to other antibiotic agents; Z88.8 Allergy status to other drugs, medicaments and biological substances; Z82.49 Family history of ischemic heart disease and other diseases of the circulatory system; Z82.5 Family history of asthma and other chronic lower respiratory diseases
CPT/HCPCS: 36415; 51702; 59050; 59410; 80307; 81001; 84112; 85025; 85027; 86850; 86900; 86901; 96374; 96375

== ENCOUNTER 2023-08-07 08:20 | Outpatient (RCR) | payer OTHER, MEDICAID, SELFPAY ==
--- NOTE | 2023-08-07 09:51 | PC.NURSE ---
Justine and 3 week 3 days old Dominick arrive for support. States did not keep appointment for follow up but would now like help to stop using shield for every feeding. States used shield here in hospital as was wild and would not latch at the breast. Now infant has settled into feeding, is gaining weight, outputs are appropriate and mom feels like shield is now a bother . Infant weight obtained and to mom. Mom holds and latches with shield. Shallow latch on shield allowed. Discussed deeper latch at breast as goal to avoid nipple damage. Infant re-latched without shield with minimal assistance from LC. Mainly verbal support and guidance to tickle nose with nipple and bring infant in quickly for deep latch. Baby Dominick now nurses 15 minutes actively, audible swallows noted, deep latch and suck. Mom pleased infant cooperative and feeds well. Able to latch independantly on 2nd breast. Plans made to return 08/14/2023 for further support.
== END 2023-08-07 09:45 | disposition home or self-care (01) ==
LOC: FBCO 08:20
PROVIDERS: Visit Provider Obstetrics & Gynecology
DX: Z39.1 Encounter for care and examination of lactating mother (principal)
CPT/HCPCS: G0463

== ENCOUNTER 2023-08-14 08:30 | Outpatient (OUT) | payer OTHER, MEDICAID, SELFPAY ==
--- NOTE | 2023-08-14 12:19 | PC.NURSE ---
Justine and Dominick arrive for weight check after stopping use of shield. Mom reports feedings are fantastic baby has been cluster feeding last day and an half. Discussed growth spurt and expectations. Verbalized understanding. Mom also expresses concerns that baby has reflux as she has wet burps, hiccups, and is fussy throughout the day. As well as wakes at night crying, goes from sleeping soundly to mad crying very quickly Discussed infant growth, feeding and outputs all WNL. Encouraged to look at maternal dairy intake as possible contributor to infant symptoms. Willing to cut obvious dairy out of diet for next month. Also encouraged to discuss concerns with PCP today at well child visit. Verbalized understanding. Aware of MOMS group 09/02/2023
== END 2023-08-14 12:26 | disposition home or self-care (01) ==
LOC: FBCO 08:33
PROVIDERS: Visit Provider Obstetrics & Gynecology
DX: Z39.1 Encounter for care and examination of lactating mother (principal)
CPT/HCPCS: G0463

== ENCOUNTER 2024-04-20 21:00 | Outpatient (REF) | payer MEDICAID, SELFPAY | END 2024-04-20 21:01 | disposition home or self-care (01) | LOC: LAB 21:00 | PROVIDERS: Visit Provider Obstetrics & Gynecology | DX: Z01.419 Encounter for gynecological examination (general) (routine) without abnormal findings (principal) | CPT/HCPCS: 88175 ==

== ENCOUNTER 2025-10-09 12:35 | Outpatient (OUT) | payer MEDICAID, SELFPAY ==
--- OUTSIDE RECORDS SUMMARY | 2022-02-22 06:15 | XMS_ITS | Continuity of Care Document ---
Author Organization [facility] Address [address] [place] [phone] Phone Care Team Providers Care Workplace Relations Adviser Name Role Phone Jhoan RUSTYJung Esqueda Unavailable Unavailable Allergies, Adverse Reactions, Alerts Substance Reaction Status Criticality No Known Allergies Active No Inform ation Medications Medication Instructions Dosage Effective Dates (start - stop) Status Comments gabapentin 100 mg capsule take 1 capsule by oral route 3 times every day 100 MG - Active Microgestin 1.5/30 (21) 1.5 mg-30 mcg tablet take 1 tablet by oral route every day 1.00 tablet - Active acyclovir 800 mg tablet take 1 tablet by oral route 5 times every day for 10 days 800 MG - Active Procedures Procedure Date Bitewings Four Films Prophylaxis Adult Oral Hygiene Instruction Resin Composite 2s; Posterior 1 Oral Hygiene Instruction Resin Composite 1s; Posterior 1 Resin Composite 1s; Posterior 1 Oral Hygiene Instruction Oral Hygiene Instruction Resin Composite 2s; Posterior 1 Oral Hygiene Instruction Resin Composite 3s; Posterior 1 Intraoral-complete Series (bw) Oral Hygiene Instruction Comp Oral Eval New/estab Patient 2019 Panoramic Film Advance Directives Directive Yes / No Effective Date File Name No Information Encounters Encounter Description Practice Location Reason(s) For Visit Diagnoses Date Provider Providers Copied on Encounter [facility], [address] [place] [address], [id number], [place] tel:[phone] Dental Clinic Adult Prophy (chief complaint) Encounter for screening for dental disorders Jhoan Feng. [address] [place], [address], [place]. tel:[phone] [facility], [address], [place], [id number], [place] tel:[phone] Dental Clinic Fill (chief complaint) Encounter for screening for dental disorders Nabil Lopez. [address], [place], [id number], [place]. tel:[phone] [facility], [address], [place], [id number], [place] tel:[phone] Dental Clinic filling (chief complaint) Encounter for screening for dental disorders Ge Jordan. [address] [place], [address], [place]. tel:[phone] [facility], [address], [place], [id number], [place] [phone] Dental Clinic filling (chief complaint) Encounter for screening for dental disorders Carmine Edge. [address], [place], [id number], [place]. tel:[phone] [facility], [address], [place], [id number], [place] [phone] Dental Clinic Fill (chief complaint) Encounter for screening for dental disorders Carmine Edge. [address], [place], [id number], [place]. tel:[phone] [facility], [address], [place], [id number], [place] tel:[phone] Dental Clinic dn (chief complaint) Encounter for screening for dental disorders Nabil Lopez. [address], [place], [id number], [place]. tel:[phone] Family History Family Member Type Diagnosis Age At Onset Mother Problem Alive and well Father Problem Alive and well Payers Payer name Insurance type Covered libertarian ID Anders garland(s) Self Pay Cap 09 [id number] Social History Type Description Quantity Date Captured Comments Alcohol Use Details Unknown Caffeine Use Details Unknown Tobacco Use Status Current non-smoker Smoking Status Never smoker Sex Female Sexual Orientation Straight or heterosexual Gender Identity Female Vital Signs Date / Time: Height Weight BMI Pulse Rate Blood Pressure Temperature Respiratory Rate Body Surface Area Head Circumference Head Circ. Percentile Wt./[place]. Percentile BMI percentile Pulse Ox Inhaled Ox 12:01 PM 86 /min 110/74 mm[Hg] 98.40 F Chief Complaint And Reason For Visit From encounter dated '02/22/2022 11:15'. Adult Prophy (chief complaint) Reason For Referral Reason For Referral No Information History Of Present Illness Encounter Date Complaint History Of Prese nt Illness Adult Prophy Fill filling Continue with tr eatment filling filling Fill dn dn Functional Status Date Functional Assessmen t No Information Instructions Date Instruction Additional Infor mation No Information Assessments Type Assessment Date assessment Encounter for screening for dent al disorders Patient Care Teams Name Effective Dates (start - stop) Status Members No Information
--- OUTSIDE RECORDS SUMMARY | 2025-10-09 12:38 | XMS_ITS | CCD ---
Author Organization [facility] CliniSymn Care Team Providers Care Pododermatologist Name Role Phone EUGENIO ., DR SY Admitting Unavailable EUGENIO ., DR SY Consulting Unavailable EUGENIO ., DR SY Attending Unavailable ZIEBER, DR NELLA Belcher Consulting Unavailable EUGENIO ., DR SY Admitting Unavailable EUGENIO ., DR SY Attending Unavailable EUGENIO ., DR SY Consulting Unavailable ZIEBER, DR NELLA Belcher Consulting Unavailable REQUEST, DR HENNESSY LISTED Consulting Unavaila ble EUGENIO ., DR SY Admitting Unavailable EUGENIO ., DR SY Attending Unavailable EUGENIO ., DR SY Consulting Unavailable EUGENIO ., DR SY Admitting Unavailable UEGENIO ., DR SY Attending Unavailable EUGENIO ., DR SY Consulting Unavailable EUGENIO ., DR SY Admitting Unavailable EUGENIO ., DR SY Attending Unavailable EUGENIO ., DR SY Consulting Unavailable ANGEL BAZAN Consulting Unavailable EUGENIO ., DR SY Admitting Unavailable EUGENIO ., DR SY Attending Unavailable EUGENIO ., DR SY Consulting Unavailable DANUTA ., AMBER Admitting Unavailable DANUTA ., AMBER Attending Unavailable DANUTA ., AMBER Consulting Unavailable EUGENIO ., DR SY Admitting Unavailable EUGENIO ., DR SY Attending Unavailable EUGENIO ., DR SY Consulting Unavailable EUGENIO ., DR SY Admitting Unavailable EUGENIO ., DR SY Attending Unavailable EUGENIO ., DR YS Consulting Unavailable DANUTA ., AMBER Admitting Unavailable DANUTA ., AMBER Attending Unavailable DANUTA ., AMBER Consulting Unavailable Ankita Berkowitz MD Primary Care Provider Julian Mayer DO Primary Care Provider JULIAN MAYER Attending Unavailable YOSSI AVILES Attending Unavailable JULIAN MAYER Attending Unavailable Allergies Allergy ClassificationReported Allergen(s)Allergy TypeDate of OnsetReaction(s) Facility (5 sources)AzithromycinDrug Oklvfff70-42-6866[facility] Work Phone: (5 sources)SUMAtriptanDrug Ameymvm82-43-5008Hndhgptlr, HeadacheNOMS Healthcare Medications Current Medications MedicationDrug Class(es)DatesSig (Normalized)Sig (Original)methylPREDNISolone (2 sources)CorticosteroidStart: 68-54-1536csinmdUPAKHGQrydpr (Medrol Dospak) 4 MG tablets Indications: Bronchitis Follow schedule on package instructions 21 tablet 03/08/2025 Active Problems Active Problems Problem ClassificationProblemDateDocumented DateEpisodic/ChronicChronic obstructive pulmonary disease and bronchiectasis (2 sources)Bronchitis; Translations: [Bronchitis, not specified as acute or chronic]08-08-2562PwytbrysYeaxok infertility (4 sources)Female infertility associated with anovulation; Translations: [FE INFERTILITY ASSOC W/ANOVULATION]Onset: 78-45-0146ZukydkuJgwsfji and fatigue (5 sources)Chronic fatigue syndrome; Translations: [Chronic fatigue syndrome] Onset: 162315-87-1748VjuclthSyzpeizll disorders (5 sources)Irregular menstruation, unspecified; Translations: [IRREGULAR MENSTRUATION UNSPECIFIED]Onset: 31-89-7166YrdknbgMujjc endocrine disorders (4 sources)Polycystic ovarian syndrome; Translations: [POLYCYSTIC OVARIAN SYNDROME]Onset: 38-32-6623MxhkxooYtboe endocrine disorders (5 sources)Polycystic ovary syndrome; Translations: [Polycystic ovarian syndrome]Onset: 005722-69-4294GpanmvqJvdgh screening for suspected conditions (not mental disorders or infectious disease) (11 sources)Encounter for screening for malignant neoplasm of cervix; Translations: [Encounter for screening, unspecified]Onset: 12-20-2022 EpisodicResidual codes; unclassified (2 sources)FH: premature coronary heart disease; Translations: [Family history of ischemic heart disease and other diseases of the circulatory system] 39-52-7665KgkgehsoCtnybtoy codes; unclassified (2 sources)Family history of hyperlipidemia; Translations: [Family history of other disorder of lipoprotein metabolism and other lipidemia]41-86-1806Mlyqwwra Residual codes; unclassified (2 sources)Family history of diabetes mellitus; Translations: [Family history of diabetes mellitus]41-67-2367AsfxfnelHtvmzbnufpgd (5 sources)OB RemindersOnset: 908201-44-1877 Past or Other Problems Problem ClassificationProblemDateDocumented DateEpisodic/ChronicNausea and vomiting (5 sources)Nausea and vomiting; Translations: [Nausea with vomiting, unspecified]Onset: 065405-07-8670GgddrnukNxahk and delivery including normal (18 sources)Encounter for supervision of normal , unspecified, unspecified trimester; Translations: [Encounter for supervision of normal , unspecified, second trimester]Onset: 10-36-0169AwdvmsghLximsqpx codes; unclassified (1 source)Less than 8 weeks gestation of ; Translations: [< 8 WEEKS GESTATION ]Onset: 51-38-1653Impdncss Results Test NameValueInterpretationReference RangeFacilityPAP ACOG PANEL 2: 21 to 29on 08-95-2585Iph Gdln ACOG Dljekhq26-35HvrkyyCjkNorwalk Memorial HospitalComment on above: Performed By: #### [id number] #### [facility] [address] [place] [address] Dr. Shreya Rodriguez PREG ANATOMY SINGLEon 10-95-4649BG PREG ANATOMY SINGLE EXAMINATION: US PREG ANATOMY SINGLE HISTORY: anatomy study COMPARISON: Ultrasound transvaginal 11/20/2022 TECHNIQUE: Transabdominal sonographic examination was performed for obstetrical and evaluation. FINDINGS: Number: 1 Heart Rate: 148.0 bpm H.B. /min Amniotic Fluid Volume: Subjectively normal Placental Location: Anterior with lower margin 7.9 cm from os. Cervix Length: 4.0 cm, closed. ANATOMY: Normal Structures -cerebellum, choroid plexus, cisterna magna, lateral cerebral ventricles, orbits, midline falx, hard palate, four-chamber heart, RVOT, LVOT, stomach, kidneys, bladder, umbilical cord insertion into abdomen, three-vessel cord, cervical spine, thoracic spine, lumbar spine, sacral spine, right upper extremity, left upper extremity, right lower extremity, left lower extremity. SUBOPTIMALLY SEEN: None ABNORMALITIES: None BIOMETRY: BPD: 5.1 cm 21 weeks 3 days ; 73% HC: 19.2 cm 21 weeks 3 days; 68% AC: 17.0 cm 22 weeks 0 days; 78% FL: 3.8 cm 22 weeks 1 days; 83% EFW:464.7 grams; 94% FL/AC: 22.4 FL/BPD: 74.5 HC/AC: 1.1 GESTATIONAL AGE: Age by EDC: 20 weeks 6 days JOSELYN by EDC: 07/19/2023 Age by current US: 21 weeks 5 days JOSELYN by current US: 07/13/2023 IMPRESSION: 1. Single live intrauterine with growth detailed above. Electronically authenticated by: NELLA BOYD Date: 2023-03-07 15:23[facility] MATERNAL FOR SPINA BIFIDAon 25-48-8080DYO MoM1.65Norwalk Memorial HospitalComment on above:Performed By: #### PROGES #### [facility] [address] [address] [address] Shreya Joseph Value57.6 ng/mLNSt. John of God HospitalComment on above: Performed By: #### PROGES #### [facility] [address] [address] [address] Shreya Joseph, Serum for Spina BifidaReMercy Health Lorain Hospital Comment on above:Performed By: #### PROGES #### [facility] [address] [address] [address] Shreya RiverSelect Medical Specialty Hospital - ColumbusComment on above:Result Comment: Kristel Tirado, Ph.D., [facility] Director . References: Available Upon Request. . Multiples Of Median Cutoffs For AFP Elevations [place] 2.5 Black 2.8 IDD 2.0 Twins 4.5 Abbreviation Definitions IDD - Insulin Dep Diabetes OSBR - Open Spina Bifida Risk . For further inquiries contact [employer] at [phone]. . This test was developed and its performance characteristics determined by [employer]. It has not been cleared or approved by the Food and Drug Administration.Performed By: #### PROGES #### [facility] [address] [address] [address] Shreya Flores Age Collection Date17.1 weeksNorwalk Memorial Hospital Comment on above:Performed By: #### PROGES #### [facility] [address] [place] [address] Dr. Shreya Floresat, Age Based onUltrasoundNorwalk Memorial HospitalComforest view hospital on above:Result Comment: 15.4 on 01/28/2023 Recalculations are not recommended when gestational dating by LMP and ultrasound are within 10 days.Performed By: #### PROGES #### [facility] [address] [place] [address] Dr. Shreya GannonInsulin Dep [facility]ike Medical CenterComment on above:Performed By: #### PROGES #### [facility] [address] [place] [address] Dr. Shreya GannonInterpretationSelect Medical Specialty Hospital - ColumbusComment on above: Result Comment: Interpretation: Screen Negative . This result is screen negative for OSB. The AFP MoM calculated is based on the gestational age provided. MS-AFP can identify up to 80% of open neural tube defects. Closed neural tube defects and some open defects may not be detected by this test. This test does not screen for Down Syndrome or Trisomy 18. If screening for Down Syndrome or Trisomy 18 is desired, contact [employer] to discuss available options. The [employer] recommends amniocentesis be offered to women age 35 and older.Performed By: #### PROGES #### [facility] [address] [place] [address] Dr. Shreya Barton Age at EDD26.0 [facility] CenterComment on above:Performed By: #### PROGES #### [facility] [address] [place] [address] Dr. Shreya GannonMultiplnorberto [facility] Lor[facility] HospitalComment on above: Performed By: #### PROGES #### [facility] [address] [address] [address] Shreya FraserBR Risk 1 DJ1205ZuefotDlbUniversity Hospitals Ahuja Medical Centerment on above: Performed By: #### PROGES #### [facility] [address] [address] [address] Shreya Parnell.NormalMercy Health Clermont Hospitalment on above:Performed By: #### PROGES #### [facility] [address] [address] [address] Shreya RicardoucabillyanNormalThe [facility] HospitalComment on above: Performed By: #### PROGES #### [facility] [address] [address] [address] Shreya Monreal Results:NegativeNormTrumbull Memorial Hospital on above: Performed By: #### PROGES #### [facility] [address] [place] [address] Dr. Shreya Castillo AUTO DIFFon 83-64-0842QBXW #0.0 103/ulNormal0.0-0.1The [facility] on above:Performed By: #### PROGES #### [facility] [address] [place] [address] Dr. Shreya GannonBasophils/100 WBC (Bld)0.3 %Normal0.2-2.0[facility] on above:Performed By: #### PROGES #### [facility] [address] [place] [address] Dr. Shreya De La Torre #0.1 103/ulNormal0.0-0.7The [facility] on above: Performed By: #### PROGES #### [facility] [address] [place] [address] Dr. Shreya Gutierrezosinophils/100 WBC (Bld)0.8 %Critically low0.9-7.0The [facility] Hospitalment on above:Performed By: #### PROGES #### [facility] [address] [place] [address] Dr. Shreya Gutierrezrythrocyte distribution width (RBC) [Ratio]13.0 %Scirsw00.0-15.[address] [facility] HospitalComment on above:Performed By: #### PROGES #### [facility] [address] [place] [address] Dr. Shreya GannonHematocrit (Bld) [Volume fraction]31.9 %Critically low36.0-48.0 The [facility] HospitalComment on above:Performed By: #### PROGES #### [facility] [address] [place] [address] Dr. Shreya GannonHemoglobin (Bld) [Mass/Vol]10.5 g/dLCritically low12.0-16.0The [facility] HospitalComment on above:Performed By: #### PROGES #### [facility] [address] [place] [address] Dr. Shreya Shearer #0.18 10e3/ulCritically high0.00-0.03The [facility] Comment on above:Performed By: #### PROGES #### [facility] [address] [place] [address] Dr. Shreya Shearer %1.7 %Critically high0.0-0.5The [facility] HospitalComment on above:Performed By: #### PROGES #### [facility] [address] [place] [address] Dr. Shreya Frazier #1.5 103/ulNormal1.2-3.8The [facility] HospitalComment on above:Performed By: #### PROGES #### [facility] [address] [place] [address] Dr. Shreya Buchananmphocytes/100 WBC (Bld)13.9 %Critically low20.5-60.0The [facility] HospitalComment on above:Performed By: #### PROGES #### [facility] [address] [place] [address] Dr. Shreya KolbUAL DIFF REQNONormalThe [facility] HospitalComment on above: Performed By: #### PROGES #### [facility] [address] [place] [address] Dr. Shreya Low (RBC) [Entitic mass]27.6 bkTyqzwx03.7-34.0The [facility] HospitalComment on above:Performed By: #### PROGES #### [facility] [address] [place] [address] Dr. Shreya Hawkins (RBC) [Mass/Vol]32.9 g/aMGvhpqj23.9-35.2The [facility] HospitalComment on above:Performed By: #### PROGES #### [facility] [address] [place] [address] Dr. Shreya Hawkins (RBC) [Entitic vol]83.7 aJZzebai65.0-99.0The [facility] HospitalComment on above:Performed By: #### PROGES #### [facility] [address] [place] [address] Dr. Shreya Castro #0.6 103/ulNormal0.3-0.8The [facility] HospitalComment on above:Performed By: #### PROGES #### [facility] [address] [place] [address] Dr. Shreya Churchocytes/100 WBC (Bld)5.1 %Normal1.7-12.0[facility] Comment on above:Performed By: #### PROGES #### [facility] [address] [place] [address] Dr. Shreya Singh #8.5 103/ulCritically high1.4-6.5The [facility] Comment on above:Performed By: #### PROGES #### [facility] [address] [place] [address] Dr. Shreya Laurenophils/100 WBC (Bld)78.2 %Critically high43.0-75.0The [facility] HospitalComment on above:Performed By: #### PROGES #### [facility] [address] [place] [address] Dr. Shreya Arteagalet mean volume (Bld) [Entitic vol]10.2 fLNormal9.5-13.5The [facility] HospitalComment on above:Performed By: #### PROGES #### [facility] [address] [place] [address] Dr. Shreya GannonPLT246 103/csXbtdtg399-707Hwp [facility] Hospitalment on above: Performed By: #### PROGES #### [facility] [address] [place] [address] Dr. Shreya GannonRBC3.81 106/ulCritically low4.20-5.40The [facility] Hospitalment on above:Performed By: #### PROGES #### [facility] [address] [place] [address] Dr. Shreya GannonWBC10.8 103/ulNormal4.0-11.0The [facility] on above:Performed By: #### PROGES #### [facility] [address] [place] [address] Dr. Shreya GannonGLUCOSE - 1HRon 62-03-0931Hhecttf [Mass/Vol]105 mg/cRJnwnpd77-332 [facility] on above:Performed By: #### GLU1HR #### [facility] [address] [place] [address] Dr. Shreya Renee BOX TEST PT SEND OUTon [id number] TO REF LAB01/04/2023 NormalThe [facility] on above:Performed By: #### NBOX #### [facility] [address] [place] [address] Dr. Shreya Renee BOX TEST PT SEND OUTon [id number] TO REF LAB12/24/2022 NormalThe [facility] on above:Performed By: #### PROGES #### [facility] [address] [place] [address] Dr. Shreya Christianson B SURFACE ANTIGEN SCREENon 67-31-4881LXgHv ScreenNegative NormalNegativeThe [facility] on above:Performed By: #### HBSANS #### [facility] [address] [place] [address] Dr. Shreya Marquez C VIRUS AB W/ REFLEX QUANTon [id number] AB<0.1Normal 0.0-0.9[facility] on above:Performed By: #### HCVPCRR #### [facility] [address] [place] [address] Dr. Shreya GannonInterpretation:CommentNormalThe [facility] on above:Result Comment: Negative Not infected with HCV, unless recent infection is suspected or other evidence exists to indicate HCV infection.Performed By: #### HCVPCRR #### [facility] [address] [place] [address] Dr. Shreya GannonHIV 1 AND 2 WITH REFLEXon 60-44-4821NLI Screen 4th Generation wRfxNon-ReactiveNormalNon ReactiveThe [facility] on above:Result Comment: HIV Negative HIV-1/HIV-2 antibodies and HIV-1 p24 antigen were NOT detected. There is no laboratory evidence of HIV infection.Performed By: #### HIV12 #### [address] [address] Dr[address] Shreya GannonRPR QUANTon 94-03-2090Pznmd Plasma Reagin, QuantNon-Reactive NormalNonRea<1:1The [facility] on above:Result Comment: Please Note: This test does not meet current guidelines for screening and diagnosis of syphilis. This test is intended for following treatment response in patients being treated for syphilis infection. To screen for syphilis infection, a reflex cascade that includes both RPR and a treponema-specific assay should be utilized, such as Treponema pallidum (Syphilis) Screening [place] (656721) or Rapid Plasma Reagin (RPR) Test With Reflex to Quantitative RPR and Confirmatory Treponema pallidum Antibodies (423428).Performed By: #### PROGES #### [facility] [address] [place] [address] Dr. Shreya GannonRUBELLA AB IGGon 33-83-1914Hsoabyk Antibodies, IgG3.54 index NormalImmune >0.99[facility] on above:Result Comment: Non- immune <0.90 Equivocal 0.90 - 0.99 Immune >0.99Performed By: #### RUBIGG #### [facility] [address] [place] [address] Dr. Shreya GannonCBC AUTO DIFFon 16-67-4912MPWQ #0.0 103/ulNormal0.0-0.1The [facility] HospitalComment on above:Performed By: #### CBC #### [facility] [address] [address] [address] Shreya GannonBasophils/100 WBC (Bld)0.2 %Normal0.2-2.0[facility] Comment on above:Performed By: #### CBC #### [facility] [address] [address] [address] Shreya De La Torre #0.1 103/ulNormal0.0-0.7The [facility] HospitalComment on above: Performed By: #### CBC #### [facility] [address] [place] [address] Dr. Shreya Gutierrezosinophils/100 WBC (Bld)1.2 %Normal0.9-7.0[facility] Comment on above:Performed By: #### CBC #### [facility] [address] [place] [address] Dr. Shreya Gutierrezrythrocyte distribution width (RBC) [Ratio]12.9 %Txxpzx03.0-15.[address] [facility] HospitalComment on above:Performed By: #### CBC #### [facility] [address] [place] [address] Dr. Shreya GannonHematocrit (Bld) [Volume fraction]37.5 %Dxuddw84.0-48.0The [facility] HospitalComment on above:Performed By: #### CBC #### [facility] [address] [place] [address] Dr. Shreya GannonHemoglobin (Bld) [Mass/Vol]11.9 g/dLCritically low12.0-16.0The [facility] HospitalComment on above:Performed By: #### CBC #### [facility] [address] [place] [address] Dr. Shreya Shearer #0.08 10e3/ulCritically high0.00-0.03The [facility] Comment on above:Performed By: #### CBC #### [facility] [address] [address] [address] Shreya Shearer %0.7 %Critically high0.0-0.5[facility] on above:Performed By: #### CBC #### [facility] [address] [address] [address] Shreya Frazier #2.1 103/ulNormal1.2-3.8The [facility] HospitalComment on above:Performed By: #### CBC #### [facility] [address] [place] [address] Dr. Shreya Brianhocytes/100 WBC (Bld)19.6 %Critically low20.5-60.0[facility] on above:Performed By: #### CBC #### [facility] [address] [place] [address] Dr. Shreya KolbUAL DIFF REQNONormalThe [facility] HospitalComment on above: Performed By: #### CBC #### [facility] [address] [place] [address] Dr. Shreya Hawkins (RBC) [Entitic mass]27.7 wdFyeyhj73.7-34.0[facility] on above:Performed By: #### CBC #### [facility] [address] [place] [address] Dr. Shreya Hawkins (RBC) [Mass/Vol]31.7 g/dSTlsako12.9-35.2[facility] on above:Performed By: #### CBC #### [facility] [address] [place] [address] Dr. Shreya Hawkins (RBC) [Entitic vol]87.2 lGLcykmj55.0-99.0[facility] on above:Performed By: #### CBC #### [facility] [address] [place] [address] Dr. Shreya Castro #0.6 103/ulNormal0.3-0.8The [facility] HospitalComforest view hospital on above:Performed By: #### CBC #### [facility] [address] [place] [address] Dr. Shreya Churchocytes/100 WBC (Bld)5.6 %Normal1.7-12.0The [facility] Comment on above:Performed By: #### CBC #### [facility] [address] [place] [address] Dr. Shreya EarlUT #8.0 103/ulCritically high1.4-6.5The [facility] Comment on above:Performed By: #### CBC #### [facility] [address] [place] [address] Dr. Shreya Earlutrophils/100 WBC (Bld)72.7 %Ieibdb05.0-75.0The [facility] HospitalComment on above:Performed By: #### CBC #### [facility] [address] [place] [address] Dr. Shreya GannonPlatelet mean volume (Bld) [Entitic vol]10.0 fLNormal9.5-13.5The [facility] HospitalComment on above:Performed By: #### CBC #### [facility] [address] [place] [address] Dr. Shreya GannonPLT289 103/gxIdmnyi380-084Ncr [facility] HospitalComment on above: Performed By: #### CBC #### [facility] [address] [place] [address] Dr. Shreya GannonRBC4.30 106/ulNormal4.20-5.40The [facility] HospitalComment on above:Performed By: #### CBC #### [facility] [address] [place] [address] Dr. Shreya GannonWBC10.9 103/ulNormal4.0-11.0The [facility] HospitalComment on above:Performed By: #### CBC #### [facility] [address] [place] [address] Dr. Shreya VieiraLTJANY URINEon 53-35-5534WJBLQQU URINECulture Observations: NO GROWTH.NormalThe [facility] HospitalComment on above:Performed By: #### PROGES #### [facility] [address] [place] [address] Dr. Shreya GannonGLYCOHEMOGLOBIN A1Con [id number] RECOMMENDATIONSEE BELOWNormal [facility] HospitalCom[facility] hospital on above:Result Comment: ADA RECOMMENDED LIMIT 4.0 - 6.0 ADA THERAPEUTIC TARGET < 7.0 ACTION SUGGESTED > 7.0Performed By: #### PROGES #### [facility] [address] [place] [address] Dr. Shreya GannonGlucose [Mass/Vol]105 mg/dLNoRegency Hospital Cleveland WestComment on above:Performed By: #### PROGES #### [facility] [address] [place] [address] Dr. Shreya GannonHbA1c (Bld) [Mass fraction]5.3 %Normal4.5-6.2The [facility] HospitalComment on above:Performed By: #### PROGES #### [facility] [address] [place] [address] Dr. Shreya GannonTYPE AND SCREENon 74-49-8450RHCK AND SCREENNegativeNoRegency Hospital Cleveland WestComment on above:Performed By: #### PROGES #### [facility] [address] [place] [address] Dr. Shreya GannonUS PREG TVon [id number] PREG TVEXAMINATION: US PREG TV HISTORY: Missed period COMPARISON: No relevant comparison available. FINDINGS: GESTATIONAL SAC: Present and normal appearing. YOLK SAC: Present and normal appearing. POLE: Present and normal appearing. CARDIAC: Present. UTERUS: Normal size and appearance. OVARIES: Right: Corpus lutein cyst. Left: Normal. CERVIX: 3.6 cm in length and closed. CUL-DE-SAC: Normal. OTHER: None. AGE BY LMP: 7 weeks 1 day JOSELYN BY LMP: 07/10/2023 AGE BY US CRL: 5 weeks 6 days JOSELYN BY US CRL: 07/19/2023 IMPRESSION: 1. Single live intrauterine . Electronically authenticated by: NELLA BOYD Date: 2022-11-22 17:27NoRegency Hospital Cleveland WestPROGESTERONEon [id number] ng/mLNormalThe Newman HospitalComment on above:Result Comment: Follicular phase 0.1 - 0.9 Luteal phase 1.8 - 23.9 Ovulation phase 0.1 - 12.0 First trimester 11.0 - 44.3 Second trimester 25.4 - 83.3 Third trimester 58.7 - 214.0 Postmenopausal 0.0 - 0.1Performed By: #### PROGES #### [facility] [address] [place] [address] Dr. Shreya GannonPROGESTERONEon [id number] ng/mLNSt. John of God HospitalComment on above:Result Comment: Follicular phase 0.1 - 0.9 Luteal phase 1.8 - 23.9 Ovulation phase 0.1 - 12.0 First trimester 11.0 - 44.3 Second trimester 25.4 - 83.3 Third trimester 58.7 - 214.0 Postmenopausal 0.0 - 0.1Performed By: #### PROGES #### [facility] [address] [place] [address] Dr. Shreya Rodriguez PELVIS TRANSVAGon [id number] PELVIS TRANSVAGEXAM: US PELVIS TRANSVAG EXAM DATE: 05/07/2022 9:36 AM MDT COMPARISON: None available TECHNIQUE: Grayscale and color Doppler images of the pelvic organs obtained endovaginally. Transabdominal exam was deferred in setting of a decompressed bladder. INDICATION: Polycystic ovary syndrome FINDINGS: Uterus is normal anteverted.The uterine parenchyma is homogenous without fibroids. No abnormal fluid collections within the endometrial cavity. No obvious mass within the endometrium on this noncontrast exam. Bilateral ovaries show normal size and contour with physiologic follicles within. No adnexal mass noted. Blood flow is demonstrated in bilateral ovaries on both color Doppler and spectral waveform tracings. Trace free fluid noted in pelvis appears physiologic. Dimensions- Uterus: 7.9 x 4.6 x 3.9 cm Endometrial stripe: 5.6 mm Right ovary: 2.2 x 1.4 x 1.1 cm (1.8 cc) Left ovary: 2.9 x 2.5 x 1.5 cm (5.7 cc) IMPRESSION: Normal sonographic appearance of the uterus and bilateral ovaries. Electronically authenticated by: ANGEL BAZAN Date: 2022-05-07 15:49NoRegency Hospital Cleveland West Vital Signs Date TimeVital SignValuePerforming TafjtqnbuPjygjeat28-43-3190 08:17-0500Body bikhvg675.5 cmDaxiomara Gardnert DO Work Phone: [phone] HospitalHamiupezpy60-77-8596 08:17-0500Body mass index (BMI) [Ratio]33.84 kg/j4Vbtwvixiomara Gardnert DO Work Phone: [phone])[facility] [place], [place] [address]Kjjqmylioc27-22-2129 08:17-0500Body temperature 98.1 [degF]Julian Gardnert DO Work Phone: [phone])[facility] [place], [place] [address]Ihcxmavdrc54-13-7703 08:17-0500Body xflevq42.92 kgDaxiomara Gardnert DO Work Phone: 1(276)[facility]02[facility] Psychiatric HospitalLxsaqbwuxs95-85-0754 08:17-0500Diastolic blood bobjibmi11 mm[Hg]Julian Gardnert DO Work Phone: 1(177)[facility] [place], [place] [address]Hhewekqmde80-19-3702 08:17-0500Heart rate78 /min Julian Gardnert DO Work Phone: [phone] [place], [place] [address]Xbrzprdovg02-00-3693 08:17-0500Respiratory rate20 /minDvitaly Mayer DO Work Phone: 1(203)[facility] [place], [place] [address]Opubklgdbw26-08-9173 08:17-5816GuN9% (BldA) [Mass fraction]98 %Julian Gardnert DO Work Phone: [phone]47[facility] HospitalGgrtwjedqs93-14-4879 08:17-0500Systolic blood cgcrvbza580 mm[Hg]Julian Gardnert DO Work Phone: [facility] HospitalNeachepcik25-00-4949 19:06-0400Body ltpacr34.916 kgDR YOSSI AVILES .[facility] Charles HospitalComment on above:Performed By: #### PROGES #### [facility] [address] [place] [address] Dr. Shreya Gannon Encounters Encounter DateEncounter TypeCare ProviderFacilityStart: 03-08-2025 End: 83-38-9383Qwolly outpatient visit 15 minutesDalynetteel Denver DO Work Phone: [facility] SEP FMComment on above:Bronchitis (Primary Dx) Start: 03-08-2025 End: 03-18-0819qvwblvgieeIOGOEO TRUITTNot AvailableStart: 10-28-2024 End: 64-13-4836Feghlf flowsheetDaniel Denver DO Work Phone: [facility] SE[facility] FMStart: 10-28-2024 End: 87-23-9928Fdpvyt flowsheetDaniel Denver DO Work Phone: [facility] SE[facility] FMStart: 10-28-2024 End: 13-75-9998yyyutcdvnyPFSZPK TRUITTNot AvailableStart: 10-28-2024 End: 21-24-2627Kjymhxw preventive medicine new pt age 18-39yrsDaniel Denver DO Work Phone: [facility] SEP FMComment on above:Annual wellness visit (Primary Dx); Family history of early CAD; Family history of hyperlipidemia; Screening for lipid disorders; Family history of diabetes mellitusStart: 10-28-2024 End: 50-13-3733Wbftygo encounter procedureDaniel Denver DO Work Phone: [facility] Work Phone: Start: 04-20-2024 End: 65-72-4984ioirqplfmvXYIUO FAZIONot AvailableStart: 04-08-2023 End: 30-64-1391bdxbwyosioNF YOSSI EUGENIO .Facility:C6Shgbo: 03-07-2023 End: 36-70-8406wtibymlhmnTI YOSSI EUGENIO .Facility:E6Sivio: 02-09-2023 End: 51-50-6062wdqkdcyajzWD YOSSI EUGENIO .Facility:W4Ozyyd: 01-04-2023 End: 39-43-6941bdfujdtmxdMR YOSSI EUGENIO .Facility:H8Qvlyp: 12-20-2022 End: 83-32-9932vmqbztgkmtTCL DANUTA .Facility:U1Rgnwl: 12-20-2022 End: 64-59-4454revpywetfyOVN DANUTA .Facility:L0Ucrzk: 11-22-2022 End: 07-88-0563xvfwrwumjwYR YOSSI AVILES .Facility:K5Ozniy: 09-21-2022 End: 98-11-5298xmqssunoldKL YOSSI AVILES .Facility:G4Vlkfw: 07-20-2022 End: 10-34-4158odjrpfvoxnAD YOSSI AVILES .Facility:H2Esfjy: 05-07-2022 End: 61-47-5618oenhgmwiitDC YOSSI BOURGEOISO .Facility:H1 Plan of Treatment DateCare ActivityDetailAuthorStart: 53-72-5636Zxfhvfldh vaccinationInfluenza Vaccine (Season Ended)[facility] HealthcareStart: 04-27-2025 End: 20-10-7757Lwnxsyc encounter fujwyydxu76/10/2025 1:00 PM EDT Office Visit [facility] [address] [place] [id number] Yossi Aviles, DO [address] [place] [address] [facility] OBStart: 09-37-2700Puddapvzy vaccination Influenza Vaccine (#1)[facility] HealthcareComment on above:Postponed from 07/19/2024 (Patient Refused)Start: 10-28-2024 End: 01-99-9219Nvordjepqjsvh metabolic 2000 panel - Serum or PlasmaComprehensive metabolic panel Lab Routine Family history of early CAD Family history of hyperlipidemia Family history of diabetes mellitus Expected: 10/28/2024 (Approximate), Expires: 10/28/2025N[facility] HealthcareComment on above:Expected: 10/28/2024 (Approximate), Expires: 10/28/2025Start: 10-28-2024 End: 41-82-4277Dfwsgunndq A1c/Hemoglobin.total in BloodHemoglobin A1c Lab Routine Family history of early CAD Family history of hyperlipidemia Family history of diabetes mellitus Expected: 10/28/2024 (Approximate), Expires: 10/28/2025N[facility] HealthcareComment on above:Expected: 10/28/2024 (Approximate), Expires: 10/28/2025Start: 10-28-2024 End: 41-24-8677Kxazw 1996 panel - Serum or PlasmaLipid panel Lab Routine Family history of early CAD Family history of hyperlipidemia Screening for lipid disorders Family history of diabetes mellitus Expected: 10/28/2024 (Approximate), Expires: 10/28/2025[facility] Work Phone: Comment on above:Expected: 10/28/2024 (Approximate), Expires: 10/28/2025Start: 80-84-0937Cxwvjonhh vaccinationInfluenza Vaccine (#1) [facility] Payers DatePayer CategoryPayerPolicy ID2023MedicaidANTHEM BCBS MEDICAID [place] [id number] [id number] 2..1.242206.3.57[id number] 2..1.066409.3.5[id number] 2..1.798254.3.5[id number] 2..1.796656.3.5[id number] 2..1.171530.3.5[id number] 2.0.1.495177.3.57[id number] 2.16.840.1.288913.3.57[id number] 2.16.840.1.539930.3.57[id number] 2.16.840.1.767788.3.57[id number] 2.16.840.1.767893.3.57[id number] 2.16.840.1.958147.3.579.2.693157-72-9780Opgbbgj Health [id number] 14-78-3894Xnek-[id number] 2.16840.1.555270.3.579.2.965Oyglipe1573797 2.16840.1.686120.3.579.2.593 Social History DateTypeDetailFacilityStart: 36-25-6591Plidhqw smoking status NHISNever smoked tobaccoNOMS HealthcareStart: 29-49-0849Fkdqyem use and exposureSmokeless tobacco non-userNOMS HealthcareStart: 04-20-2024 End: 59-40-9070Alxtlnrid beverage intakeEx-drinker (finding)[facility] Start: 10-28-2024 End: 80-07-8969Yrfmhsg of Social functionNOMS HealthcareStart: 10-28-2024 End: 86-63-3398J0719 Health LiteracyNOMS HealthcareHow often do you need to have someone help you when you read instructions, pamphlets, or other written material from your doctor or pharmacy [SILS]NeverNOMS HealthcareDo you belong to any clubs or organizations such as islam groups, unions, fraternal or athletic groups, or school groups?NoNOMS HealthcareAre you now , , , , never or living with a partner?Living with partner [facility] HealthcareHow often to you have a drink containing alcohol?NeverN[facility] HealthcareHow hard is it for you to pay for the very basics like food, housing, medical care, and heatingSomewhat hardNOMS HealthcareDo you feel stress - tense, restless, nervous, or anxious, or unable to sleep at night because yourmind is troubled all the time - these days [OSQ]Only a littleNOMS Healthcare(I/We) worried whether (my/our) food would run out before (I/we) got money to buy more. Never trueNONE HealthcareStart: 60-95-1939Zqexepu CommentOnce or twice every 6 monthsNONE HealthcareStart: 24-10-1535Whw [facility] at birthSelect [facility] Start: 25-83-9781Zfnseq identityIdentifies as female gender (finding)[facility] HealthcareStart: 55-42-3224Akkhhm orientationHeterosexual (finding)[facility] Healthcare Goals DatePatient GoalDesired Activity/StatePersonal health goal Functional Status VtlvIcuzlxlqjfEjqiajKxnppimd96-63-7016Bkzvd score [AUDIT-C]0 03/08/2025 9:00 AM EDT Sharon Ivey MANOMS Xksnjmycfm46-76-2465Xhwhtax Health Questionnaire 2 item (PHQ-2) [Reported][facility] History of Present illness Narrative 03-08-2025 Note Date & CosfRpenCaivbeje29-24-4776 History of Present illness Narrative* Julian Mayer, - 03/08/2025 9:00 AM EDT Images from the original note were not included. FAMILY MEDICINE NOTE Chief Complaint: Cough HPI: Mode of Communication: SMR SITE Video Location: Patient was at home Patient verbally consented to televisit and financial responsibility of visit being billed to insurance: Yes URI: Historian of HPI: patient Justine Coombs is a 29 y.o. female who presents today to the office with the following complaints and denials which have been present for 3 day(s) C/O Denies Symptom Comments [x] [] Runny Nose [x] [] Difficulty Swallowing [x] [] Sore Throat [x] [] Cough Productive of yellow sputum [] [x] Ear Pain [] [x] Fever [] [x] Chills [x] [] Nasal Congestion [] [x] Myalgia [x] [] Sinus Pain [x] [] Sinus Pressure Additional Comments: pt has not taken any OTC medications patient is still , but tried zyrtec, without improvement SUBJECTIVE: PROBLEM LIST SURGICAL/SOCIAL ALLERGIES: Patient Active Problem List Diagnosis Second trimester Chronic fatigue syndrome Nausea and vomiting PCOS (polycystic ovarian syndrome) History reviewed. No pertinent surgical history. Social History Tobacco Use Smoking status: Never Smokeless tobacco: Never Substance Use Topics Alcohol use: Not Currently Comment: Once or twice every 6 months Drug use: Never Allergies Allergen Reactions Azithromycin Hives Sumatriptan Dizziness and Headache Other Reaction(s): bad headache OBJECTIVE: 10/28/2024 8:17 AM 04/20/2024 3:07 PM 07/10/2023 11:37 AM Vitals BMI 33.84 kg/m2 33.11 kg/m2 38.61 kg/m2 BSA (m2) 1.92 m2 1.9 m2 2.05 m2 Systolic 112 130 128 Diastolic 70 78 74 Heart Rate 78 SpO2 98 % Temp 98.1 F Resp 20 Height (in) 5' 2 5' 2 Weight (lb) 185 181 211.12 Visit Report Report Report Report Physical Exam Constitutional: Appearance: Normal appearance. HENT: Head: Normocephalic and atraumatic. Nose: Comments: Hard to visualize on video today Mouth/Throat: Mouth: Mucous membranes are moist. Pharynx: Posterior oropharyngeal erythema present. Eyes: General: Right eye: No discharge. Left eye: No discharge. Conjunctiva/sclera: Conjunctivae normal. Neck: Comments: On self palpation pt reports b/l tenderness to palpation but not discrete palpable nodules Pulmonary: Effort: No respiratory distress. Comments: Cough with some audible wheeze on exam Neurological: Mental Status: She is alert. Psychiatric: Mood and Affect: Mood normal. Behavior: Behavior normal. ASSESSMENT AND PLAN: Assessment & Plan Bronchitis - Symptoms and examination suggest a viral upper respiratory infection/viral bronchitis - Prescribe a Medrol pack. Continue Zyrtec for allergies. Use a humidifier to soothe the airway, especially at night. Consider using a neti pot or nasal saline lavage for congestion. Increase fluid intake with water, Pedialyte, or Gatorade. - I advise patient of steroids being likely compatible with when used in short term, she reports she has been on steroids in the past and baby as tolerated well - Risks and side effects: Monitor for symptoms not improving after 7 to 10 days, persistent or worsening fevers and chills, inability to keep food down, chest pain, or shortness of breath. Seek emergency care if these occur. Orders: methylPREDNISolone (Medrol Dospak) 4 MG tablets; Follow schedule on package instructions Patient's Medications New Prescriptions METHYLPREDNISOLONE (MEDROL DOSPAK) 4 MG TABLETS Follow schedule on package instructions Previous Medications No medications on file Modified Medications No medications on file Discontinued Medications No medications on file Follow up if symptoms worsen or fail to improve. Julian Mayer DO documented in this encounterNOMS Healthcare History of Present illness Narrative 10-28-2024 Note Date & TpiqBgtpUhdhskxt80-17-5280 History of Present illness Narrative* Julian Mayer DO - 10/28/2024 8:00 AM EST Images from the original note were not included. Family Medicine Note Subjective: Chief Complaint: New Patient HPI: Pt is a 29 y.o. female presents to the office today to establish care. Patient's previous PCP: None in years in [place] at least 6 years. Patient's current other providers: OB/[facility]. Most recent labs: Fertility labs done 2 years ago Pt wanted to discuss the following today: To establish. Patient did want to discuss getting lab work today with strong family history of comorbidities. Otherwise she had denies any acute complaints or concerns at this time. Medical History: Past Medical History: Diagnosis Date Asthma (CMS/HCC) Fibromyalgia HSV (herpes simplex virus) infection Polycystic ovary syndrome 03/2022 Scoliosis Family History: Family History Problem Relation Name Age of Onset Heart disease Mother Joel Rosalesrtnorberto COPD Mother Joel Rosalesrte Osteoarthritis Mother Jole Rosalesrte Asthma Mother Joel Rosalesrte Hypertension Mother Joel Rosalesrte Migraines Mother Joel Rosalesrte Hypertension Father James Fitchimarte Hyperlipidemia Father James Rosalesrte COPD Father Arcadioer Brandimarte Osteoarthritis Father Christopher Brandimarte Asthma Father Christeduardo Brandimarte Osteoarthritis Maternal Grandmother Valentine Dobson Cancer Maternal Grandmother Valentine Dobson Hypertension Maternal Grandmother Valentine Dobson Diabetes Paternal Grandfather Roberto Dobson Hyperlipidemia Paternal Grandmother Radha Coombs () Asthma Brother Ciera Coombs Asthma Brother Girish Coombs Diabetes Father's Sister Melani Coombs Social History: Tobacco Use: Tobacco Use: Low Risk (10/28/2024) Patient History Smoking Tobacco Use: Never Smokeless Tobacco Use: Never Passive Exposure: Not on file Social History Substance and Sexual Activity Sexual Activity Yes Partners: Male control/protection: Condom Male, None Comment: Last mentural period: 10/03/22 [noted 04/08/2023] Objective: Vitals: 10/28/24 0817 BP: 112/70 Pulse: 78 Resp: 20 Temp: 98.1 F SpO2: 98% Weight: 185 lb Height: 5' 2 Physical Exam: General: patient is alert, oriented, pleasant, in no acute distress Cardiovascular: regular rate and rhythm with no murmurs, rubs or gallops Respiratory: lungs CTA bilaterally without rales, rhonchi or wheezing Abdominal: soft, nontender, normoactive BS in all 4 quadrants, no guarding, rebound or rigidity Skin: no rashes or skin lesions noted Psych: alert, oriented, appropriate mood and affect Assessment/Plan: 1. Annual wellness visit (Primary) -Pap smear: Up to date. Last completed: 04/2024. -Labs: HIV screening (one-time): Up to date with labs. Last drawn 12/2022. Hepatitis C screening (one-time): Up to date with labs. Last drawn 12/2022. Diabetes (begin at age 35 if overweight/obese or with risk factors): Patient opted for this lab to be added on 12/20 family hx -Vaccines: declined -Dental: Last visit: 2021. Advised patient that we recommend seeing a dentist at least every 6 months. Told her about the health department and [facility] who take medicaid insurances/sliding fee scales. -Vision: Last visit: 06/2024. Advised patient that we recommend minimum of annual visit with pathology lab technician/laboratory animal care veterinarian. 2. Family history of early CAD Pt opted for labs today to screen for chronic conditions with a strong famhx of CAD, HTN, HLD, DM - Lipid panel; Future - Comprehensive metabolic panel; Future - Hemoglobin A1c; Future - Lipid panel - Comprehensive metabolic panel - Hemoglobin A1c 3. Family history of hyperlipidemia See above - Lipid panel; Future - Comprehensive metabolic panel; Future - Hemoglobin A1c; Future - Lipid panel - Comprehensive metabolic panel - Hemoglobin A1c 4. Screening for lipid disorders See above - Lipid panel; Future - Lipid panel 5. Family history of diabetes mellitus See above - Lipid panel; Future - Comprehensive metabolic panel; Future - Hemoglobin A1c; Future - Lipid panel - Comprehensive metabolic panel - Hemoglobin A1c Follow-up: Follow up in about 1 year (around 10/28/2025) for annual. documented in this encounterNONE Healthcare Evaluation note Note Date & TypeNoteFacilityEvaluation note* Diagnosis Annual wellness visit- Primary Family history of early CAD Family history of ischemic heart disease Family history of hyperlipidemia Family history of other endocrine and metabolic diseases Screening for lipid disorders Family history of diabetes mellitus documented in this encounter [facility] Evaluation note Note Date & TypeNoteFacilityEvaluation note* Diagnosis Bronchitis- Primary Bronchitis, not specified as acute or chronic documented in this encounter [facility] Summary Purpose Family History No Family History Records FoundNo Family History Records Found Advance Directives No Advanced Directives Records FoundNo Advanced Directives Records Found Additional Source Comments INFORMATION SOURCE (unrecogn ized section and content) DATE CREATED AUTHOR 04/26/[address] [facility] DATE CREATED AUTHOR AUTHOR'S ORGANIZ ATION 03/08/2025 [facility] EPIC Care Teams (unrecognized sec tion and content) Team MemberRelationshipSpecialtyStart DateEnd Date Ankita Berkowitz MD [address] [place] [address] PCP - GeneralFamily Medicine03/26/23Team MemberRelationshipSpecialtyStart DateEnd Date Ankita Berkowitz MD [address] [place] [address] PCP - GeneralFamily Medicine03/26/23Team MemberRelationshipSpecialtyStart DateEnd Date Julian Mayer DO [address] [place] [address] PCP - GeneralFamily Medicine03/08/25 Reason for Visit (unrecogniz ed section and content) ReasonCommentsCough FOR RECORDS PERTAINING TO PATIENTS WHO ARE OR HAVE BEEN ENROLLED IN A CHEMICAL DEPENDENCY/SUBSTANCEABUSE PROGRAM, SOME INFORMATION MAY BE OMITTED. This clinical summary was aggregated from multiple sources. Caution should be exercised in using it in the provision of clinical care. This summary normalizes information from multiple sources, and as a consequence, information in this document may materially change the coding, format and clinical context of patient data. In addition, data may be omitted in some cases. CLINICAL DECISIONS SHOULD BE BASED ON THE PRIMARY CLINICAL RECORDS. [facility] [employer] [facility]. provides no warranty or guarantee of the accuracy or completeness of information in this document.
[2025-10-09 13:45] LABS: Cannabinoid Screen Urine NEGATIVE (NEGATIVE); Methamphetamines Screen Urine NEGATIVE (NEGATIVE); Tricyclic Antidepressant Urine NEGATIVE (NEGATIVE)
[2025-10-09 13:49] LABS: Hematocrit 38.8 % (36.0-48.0); Hemoglobin 12.5 g/dL (12.0-16.0); Immature Granulocytes Abs Auto 0.06 10^3/uL (0.00-0.03); Immature Granulocytes Pct Auto 0.6 % (0.0-0.5); Lymphocytes Absolute Auto 1.8 10^3/uL (1.2-3.8); Mean Corpuscular HGB Conc 32.2 g/dL (29.9-35.2); Mean Corpuscular Hemoglobin 26.8 pg (26.7-34.0); Mean Corpuscular Volume 83.3 fL (81.0-99.0); Platelet Count 269 10^3/uL (150-450); Red Blood Count 4.66 10^6/uL (4.20-5.40); White Blood Count 9.7 10^3/uL (4.0-11.0)
[2025-10-12 06:08] LABS: Rubella Antibodies, IgG 3.87 index (Immune >0.99)
[2025-10-12 13:08] LABS: Rapid Plasma Reagin, Quant Non Reactive titer (NonRea<1:1)
== END 2025-10-09 12:36 | disposition home or self-care (01) ==
LOC: LAB 12:35
PROVIDERS: Visit Provider Obstetrics & Gynecology
DX: Z34.90 Encounter for supervision of normal pregnancy, unspecified, unspecified trimester (principal); N92.6 Irregular menstruation, unspecified
CPT/HCPCS: 36415; 80307; 83036; 85025; 86592; 86762; 86803; 86850; 86900; 86901; 87086; 87340; 87389